=== PATIENT | male | born 1970 | race Caucasian/White ===

== ENCOUNTER 2021-05-17 10:26 | Inpatient (IN) | payer MEDICAID ==
[~2021-05-17] VITALS: Ht 165.1 cm; Wt 57.2 kg
[2021-05-17] MEDS ORDERED: ONDANSETRON HCL/PF 4 MG/2 ML VIAL IVP ONE (10:30)
[2021-05-17] MEDS ORDERED: ONDANSETRON HCL/PF 4 MG/2 ML VIAL ONE (10:38)
--- NOTE | 2021-05-17 10:40 | NUR ---
Acute nausea and vomiting this morning - reports bile vomitus. Patient a/ox1, able to nod and shake his head. Patient attached to the quality assurance monitor, noted to be tachycardic.
[2021-05-17 10:41] LABS: NEUTROPHILS % (AUTO) 86.6 % (43.0-81.0)
[2021-05-17 10:44] LABS: BASOPHILS # (AUTO) 0.1 K/uL (0.0-0.2); BASOPHILS % (AUTO) 0.3 % (0.0-2.0); EOSINOPHILS % (AUTO) 0.1 % (0.0-6.0); HEMATOCRIT 56 % (39-51); LYMPHOCYTES # (AUTO) 1.5 K/uL (0.8-4.8); MEAN CORPUSCULAR HGB CONC 35 g/dl (31.0-36.0); MEAN CORPUSCULAR VOLUME 89 fL (80-96); MONOCYTES # (AUTO) 1.8 K/uL (0.1-1.30); NEUTROPHILS # (AUTO) 22.3 K/uL (1.8-8.9); PLATELET COUNT (AUTO) 231 K/uL (150-450); RED BLOOD CELL COUNT(AUTO) 6.23 MIL/uL (4.5-6.0); WHITE BLOOD COUNT (AUTO) 25.7 K/uL (4.3-11.0)
[2021-05-17 10:47] LABS: HEMOGLOBIN 19.3 g/dL (13.5-17.5)
[2021-05-17 10:49] LABS: CALCIUM, SERUM 9.9 mg/dL (8.5-10.1); CARBON DIOXIDE 27 mmol/L (21-32); CHLORIDE 88 mmol/L (98-107); CREATININE 2.4 mg/dL (0.6-1.3); GLUCOSE 229 mg/dL (74-106); POTASSIUM 3.5 mmol/L (3.5-5.1); SODIUM SERUM 130 mmol/L (136-145); UREA NITROGEN, BLOOD 51 mg/dL (7-18)
--- NOTE | 2021-05-17 10:50 | NUR ---
Per Dr. Monk, urine not needed at this time, dont need to use straight catheter.
[2021-05-17 10:55] LABS: ALANINE AMINOTRANSFERASE 83 U/L (12-78); ALBUMIN 4.5 g/dL (3.4-5.0); ALKALINE PHOSPHATASE 258 U/L (46-116); ASPARTATE AMINOTRANSFERASE 26 U/L (15-37); BILIRUBIN,DIRECT 1.4 mg/dL (0.0-0.2); BILIRUBIN,TOTAL 2.3 mg/dL (0.2-1.0); LIPASE 376 U/L (73-393); TOTAL PROTEIN, SERUM 9.9 g/dL (6.4-8.2)
--- NOTE | 2021-05-17 10:57 | NUR ---
Patient taken to CT.
--- NOTE | 2021-05-17 11:12 | NUR ---
COVID SWAB SENT. SENIOR ACCOUNTING MANAGER AT BEDSIDE FOR BLOOD CULTURE DRAW.
[2021-05-17] MEDS ORDERED: VANCOMYCIN 1 GM in IV D5W 250 ML IV ONE (11:30)
[2021-05-17] MEDS ORDERED: IV NS 0.9% 1,000 ML BAG IV ONE (11:30)
[2021-05-17] MEDS ORDERED: MEROPENEM 1 G in IV NS 0.9% 100 ML IV ONE (11:30)
--- NOTE | 2021-05-17 12:33 | NUR ---
GT BALLOON DEFLATED AND INFLATED WITH TUBING ADJUSTED. GTUBE CONNECTED TO SUCTION FOR INTERMITTENT SUCTIONING. GREEN BILE WITH AMOUNT OF 900CC TAKEN OUT.
--- NOTE | 2021-05-17 12:41 | NUR ---
bed 104
--- NOTE | 2021-05-17 12:53 | NUR ---
report given to Sylvie BUCHANAN at [facility]. Patient's room changed to 103. Patient's HR improved.
[2021-05-17] MEDS ORDERED: CRAN3875 GT (13:24)
[2021-05-17] MEDS ORDERED: MAGN400O6 GT (13:24)
[2021-05-17] MEDS ORDERED: GUAI-717 GT (13:24)
[2021-05-17] MEDS ORDERED: BISA10SU11 RC (13:24)
[2021-05-17] MEDS ORDERED: ACET-2605 GT (13:24)
[2021-05-17] MEDS ORDERED: CRAN425C6 GT (13:24)
[2021-05-17] MEDS ORDERED: PANT40TA49 GT (13:24)
[2021-05-17] MEDS ORDERED: AMLO2.5T2 GT (13:24)
[2021-05-17] MEDS ORDERED: IPRA4AER IH (13:24)
[2021-05-17] MEDS ORDERED: DOCU-141 GT (13:24)
[2021-05-17] MEDS ORDERED: ACET325T53 GT ×2 (13:24)
[2021-05-17] MEDS ORDERED: APIX2.5T GT (13:24)
[2021-05-17] MEDS ORDERED: PHEN125O GT (13:24)
[2021-05-17] MEDS ORDERED: AMAN100T GT (13:24)
[2021-05-17] MEDS ORDERED: NA P133E RC (13:24)
[2021-05-17] MEDS ORDERED: LEVE100S GT (13:24)
[2021-05-17] MEDS ORDERED: MULT-447 GT (13:24)
[2021-05-17] MEDS ORDERED: HYDR10SY16 PO (13:24)
[2021-05-17 13:25] VITALS: BP 120/86
--- NOTE | 2021-05-17 13:25 | NUR ---
PATIENT TRANSFERRED TO ROOM 103, VIA ACLS PROTOCOL. PATIENT'S GASTRIC OUTPUT A TOTAL OF 1600CC. ENDORSED TO BROOK BUCHANAN.
[2021-05-17] MEDS ORDERED: MAG HYDROX/AL HYDROX/SIMETH 30 ML UDC GT PRN (13:30)
[2021-05-17] MEDS ORDERED: MAGNESIUM HYDROXIDE 30 ML UDC PO PRN (13:30)
[2021-05-17] MEDS ORDERED: ZOLPIDEM TARTRATE 5 MG TABLET PO PRN (13:30)
[2021-05-17] MEDS ORDERED: BISACODYL SUPP (10 MG) 10 MG/SUPP.RECT SUPP.RECT RC PRN (13:30)
[2021-05-17] MEDS ORDERED: NA PHOS,M-B/NA PHOS,DI-BA 1 EA ENEMA RC PRN ×2 (13:30→17:30)
[2021-05-17] MEDS ORDERED: MAGNESIUM HYDROXIDE 30 ML UDC GT PRN (13:30)
[2021-05-17] MEDS ORDERED: Z GUARD REMEDY 2 OZ OINT TP PRN (13:30)
[2021-05-17] MEDS ORDERED: ONDANSETRON HCL/PF 4 MG/2 ML VIAL IVP PRN (13:30)
[2021-05-17] MEDS ORDERED: Medication Not On Formulary EA (Ipratropium/Albuterol Sulfate (Combivent Respimat 20-100 IH PRN (13:30)
--- NOTE | 2021-05-17 13:30 | NUR ---
RN NOTES RECEIVED PT FROM ER. REPORT GIVEN BY PRADEEP BUCHANAN. A/O X1. NODS HEAD TO YES OR NO QUESTIONS. ON 3L O2 VIA NC, SATURATING @99%. NO SOB OR ANY S/S OF RESPIRATORY DISTRESS NOTED. SKIN IS INTACT. IV ACCESS ON L AC #18 AND L HAND #20 BOTH INTACT, PATENT AND FLUSHED. NO BELONGINGS. GTUBE CONNECTED TO LOW INTERMITTENT SUCTION, BILE COLORED. HOB ELEVATED. PLACED IN BED, LOCKED AND IN LOWEST POSITION WITH SIDE RAILS UP X3. CALL LIGHT WITHIN REACH. WILL CONTINUE TO MONITOR.
[2021-05-17] MEDS: IV NS 0.9% 1,000 ML IV SCH ×2 (13:53→23:30)
[2021-05-17] MEDS ORDERED: ACETAMINOPHEN 650 MG/20.3 ML UDC GT PRN (14:00)
[2021-05-17] MEDS ORDERED: GUAIFENESIN/D-METHORPHAN HB 5 ML UDC GT PRN (14:30)
[2021-05-17 14:57] LABS: BAND % (MANUAL) 1 % (0.0-5.0); EOSINOPHILS % (MANUAL) 1 % (0-4); LYMPHOCYTES % (MANUAL) 4 % (16-48); MONOCYTES % (MANUAL) 4 % (0-11.0); NEUTROPHILS % (MANUAL) 90 (42-76)
[2021-05-17 16:00] VITALS: BP 104/81
--- NOTE | 2021-05-17 16:30 | NUR ---
RN NOTES PAGED DR. DOT MIX GTUBE MEDS. ORDERED TO HOLD GTUBE MEDS UNTIL RESIDUAL IS <100ML. ORDERS CARRIED OUT.
[2021-05-17] MEDS: ACETAMINOPHEN 650 MG/20.3 ML UDC GT SCH (17:00)
[2021-05-17] MEDS: APIXABAN 2.5 MG TABLET GT SCH (17:00)
[2021-05-17] MEDS: LEVETIRACETAM SOL (5 ML) 100 MG/ML UDC GT SCH (17:00)
[2021-05-17] MEDS ORDERED: ALBUTEROL FS 2.5 MG/3 ML VIAL.NEB NEB PRN (17:30)
[2021-05-17] MEDS ORDERED: IPRATROPIUM NEB FS 0.5 MG/2.5 ML AMPUL.NEB NEB PRN (17:30)
[2021-05-17] MEDS: PIPERACILLIN /TAZOBACTAM 3.375 G in IV D5W 50 ML IV SCH (17:59)
--- NOTE | 2021-05-17 19:11 | NUR ---
RN CLOSING NOTES NO SIGNIFICANT CHANGES THROUGHOUT THE SHIFT. NO SOB OR ANY PAIN REPORTED. ALL DUE MEDS GIVEN. NEEDS ATTENDED. KEPT CLEAN AND DRY. RESTING COMFORTABLY IN BED. ENDORSED TO NIGHT RN FOR JOSÉ ANTONIO.
--- NOTE | 2021-05-17 19:30 | NUR ---
RN OPENING NOTES: RECEIVED PT A/OX1 IN BED RESTING COMFORTABLY. PATIENT IN NO S/SX OF ACUTE DISTRESS AT THIS TIME. NO SOB NOTED. PATIENT'S BREATHING IS EVEN AND UNLABORED. PATIENT IS ON 3L OF OXYGEN VIA NC; TOLERATING WELL. PATIENT ON TELE MONITORING READING SINUS RHYTHM HR IS @00s AT THE TIME OF RECEIVED. PATIENT ON NPO AT THIS TIME. PT HAS G TUBE SITE CLEAN DRY AND INTACT; WITH RESIDUAL NOTED OF BILE COLORED OUTPUT OF >100CC, CURRENTLY ON LOW INTERMITTENT SUCTION. NOTED IV SITE ON L AC #18 AND L HAND #20; PATENT, INTACT AND FLUSHING WELL; NO S/S OF INFECTION OR INFILTRATION. WITH IV FLUID RUNNING ORDERED. SAFETY MEASURES HAVE BEEN PROVIDED AND IMPLEMENTED. PATIENT BED ALARM IS ON. HEAD OF BED ELEVATED. BED IS LOCKED, IN LOWEST POSITION AND SIDE RAILS UP. CALL LIGHT WITHIN REACH OF THE PATIENT. APPLICABLE ISOLATION PRECAUTIONS IN PLACE. WILL CONTINUE TO MONITOR AND REASSESS FOR ANY CHANGES AND WILL CARRY OUT ANY ONGOING AND ACTIVE MD ORDER.
[2021-05-17 20:00] VITALS: BP 118/77
[2021-05-17] MEDS: hydrOXYzine HCL SYRUP 10 MG/5 ML UDC GT SCH (22:00)
--- NOTE | 2021-05-17 23:00 | NUR ---
RN NOTES NO CHANGE IN PATIENT CONDITION AT THIS TIME PATIENT VITALS STABLE, NO SIGNS OF ACUTE RESPIRATORY DISTRESS. ELECTRON MICROPROBE OPERATOR MADE AWARE. WILL CONTINUE TO MONITOR AND REASSESS FOR ANY CHANGES THROUGHOUT THE SHIFT.
[2021-05-18] VITALS: BP 97/52
[2021-05-18] MEDS: PIPERACILLIN /TAZOBACTAM 3.375 G in IV D5W 50 ML IV SCH ×5 (00:30→23:54)
[2021-05-18 04:00] VITALS: BP 115/74
--- NOTE | 2021-05-18 04:00 | NUR ---
RN NOTES PATIENT REMAINS IN NO ACUTE RESPIRATORY DISTRESS AT THIS TIME, NO CHANGES TO CONDITION/STATUS. AM PATIENT CARE DONE. BLOCKER METAL BASE WELL AWARE. WILL CONTINUE TO MONITOR AND REASSESS FOR ANY CHANGES THROUGHOUT THE SHIFT
[2021-05-18] MEDS ORDERED: VANCOMYCIN 0.75 GM in IV D5W 250 ML IV SCH (06:00)
[2021-05-18 06:35] LABS: BASOPHILS # (AUTO) 0.1 K/uL (0.0-0.2); BASOPHILS % (AUTO) 0.4 % (0.0-2.0); EOSINOPHILS % (AUTO) 1.2 % (0.0-6.0); HEMATOCRIT 45 % (39-51); HEMOGLOBIN 15.9 g/dL (13.5-17.5); LYMPHOCYTES # (AUTO) 1.4 K/uL (0.8-4.8); LYMPHOCYTES % (AUTO) 11.8 % (20.0-44.0); MEAN CORPUSCULAR HGB CONC 35 g/dl (31.0-36.0); MEAN CORPUSCULAR VOLUME 90 fL (80-96); MONOCYTES # (AUTO) 1.1 K/uL (0.1-1.30); MONOCYTES % (AUTO) 8.6 % (2.0-12.0); NEUTROPHILS # (AUTO) 9.6 K/uL (1.8-8.9); PLATELET COUNT (AUTO) 139 K/uL (150-450); RED BLOOD CELL COUNT(AUTO) 5.02 MIL/uL (4.5-6.0); WHITE BLOOD COUNT (AUTO) 12.3 K/uL (4.3-11.0)
--- NOTE | 2021-05-18 06:46 | NUR ---
RN CLOSING NOTE: PATIENT REMAINS IN ROOM IN NO SIGNS OF RESPIRATORY DISTRESS, PATIENT STILL ON 3L OF 02 VIA NC TOLERATING WELL SATURATING @ >95% SP02. SAFETY MEASURES IMPLEMENTED, BED IN LOWEST POSITION, LOCKED, SIDE RAILS UP, CALL LIGHT WITHIN REACH. ALL NEEDS AND ORDERS ADDRESSED DURING THE SHIFT. IV ACCESS MAINTAINED INTACT, SECURED AND FLUSHING WELL. ALL DUE MEDS GIVEN ORDERED & SCHEDULED ; PATIENT TOLERATED WELL. PATIENT KEPT CLEAN AND COMFORTABLE WITHIN THE SHIFT. PATIENT ENDORSED TO INCOMING SHIFT RN WITH STABLE VITAL SIGN AND FOR CONTINUITY OF CARE.
[2021-05-18 06:58] LABS: CALCIUM, SERUM 8.8 mg/dL (8.5-10.1); CREATININE 0.7 mg/dL (0.6-1.3); MAGNESIUM 2.5 mg/dL (1.8-2.4); PHOSPHORUS 1.8 mg/dL (2.5-4.9); POTASSIUM 3.3 mmol/L (3.5-5.1)
--- NOTE | 2021-05-18 07:17 | NUR ---
RN OPENING NOTE: PATIENT REMAINS IN ROOM IN NO SIGNS OF RESPIRATORY DISTRESS, PATIENT STILL ON 3L OF 02 VIA NC TOLERATING WELL SATURATING @ >95% SP02. SAFETY MEASURES IMPLEMENTED, BED IN LOWEST POSITION, LOCKED, SIDE RAILS UP IV ACCESS MAINTAINED INTACT, SECURED AND FLUSHING WELL. CALL LIGHT WITHIN EASY REACH AND ANSWERED PROMPTLY
[2021-05-18 08:00] VITALS: BP 117/76
[2021-05-18] MEDS: APIXABAN 2.5 MG TABLET GT SCH ×2 (09:00→16:23)
[2021-05-18] MEDS: AMLODIPINE BESYLATE 2.5 MG TABLET GT SCH (09:00)
[2021-05-18] MEDS: PHENYTOIN SUSP UDC 100 MG/4 ML UDC GT SCH (09:00)
[2021-05-18] MEDS: PANTOPRAZOLE 40 MG/PACK PACK GT SCH (09:00)
[2021-05-18] MEDS: DOCUSATE SODIUM LIQ 100 MG/10 ML UDC GT SCH (09:00)
[2021-05-18] MEDS: MULTIVITAMINS,THERAGRAN 1 UDTAB TABLET PO SCH (09:00)
[2021-05-18] MEDS: LEVETIRACETAM SOL (5 ML) 100 MG/ML UDC GT SCH ×2 (09:00→16:19)
[2021-05-18] MEDS ORDERED: Medication Not On Formulary EA (Cran/Vitc/Mannose/Inulin/Brom (Uti-Stat Liquid) 30 MG) GT SCH (09:00)
[2021-05-18] MEDS: AMANTADINE HCL 100 MG CAPSULE GT SCH (09:00)
[2021-05-18] MEDS: ACETAMINOPHEN 650 MG/20.3 ML UDC GT SCH ×2 (09:00→16:19)
[2021-05-18] MEDS ORDERED: Medication Not On Formulary EA (Cranberry Extract (Cranberry) 425 MG) GT SCH (09:00)
[2021-05-18 09:51] LABS: LYMPHOCYTES % (MANUAL) 13 % (16-48); MONOCYTES % (MANUAL) 9 % (0-11.0); NEUTROPHILS % (MANUAL) 78 (42-76)
[2021-05-18] MEDS: IV NS 0.9% 1,000 ML IV SCH ×2 (10:07→19:30)
[2021-05-18] MEDS: POTASSIUM CL. PREMIX PERIPHER. 50 ML IV SCH ×2 (10:08→10:20)
[2021-05-18] MEDS ORDERED: Sodium Phosphate 15 MMOL in IV NS 0.9% 245 ML IV SCH (11:30)
[2021-05-18 12:00] VITALS: BP 102/76
[2021-05-18 16:00] VITALS: BP 102/76
[2021-05-18] MEDS: VANCOMYCIN 1 GM in IV D5W 250ml IV SCH (17:09)
--- NOTE | 2021-05-18 19:15 | NUR ---
RN OPENING NOTE RECEIVED PATIENT IN BED, RESTING. REMAINS IN NO SIGNS OF RESPIRATORY DISTRESS, PATIENT STILL ON 3L OF 02 VIA NC TOLERATING WELL SATURATING @ >95% SP02. PATIENT DENIES ANY PAIN. IVF RUNNING THROUGH LEFT AC 18G, TOLERATING WELL. LEFT HAND 20G FLUSHED, PATENT, AND INTACT. G TUBE CONNECTED TO INT. SUCTION. SAFETY MEASURES IMPLEMENTED, BED IN LOWEST POSITION, LOCKED, SIDE RAILS UP X3. BED ALARM ON. CALL LIGHT WITHIN REACH AND NO ACUTE DISTRESS NOTED AT THIS TIME.
[2021-05-18 20:00] VITALS: BP 113/70
[2021-05-18] MEDS: hydrOXYzine HCL SYRUP 10 MG/5 ML UDC GT SCH (22:00)
--- NOTE | 2021-05-18 23:00 | NUR ---
RN NOTES NO CHANGE IN PATIENT CONDITION AT THIS TIME PATIENT VITALS STABLE, NO SIGNS OF ACUTE RESPIRATORY DISTRESS. PATHOLOGY TRANSCRIPTIONIST MADE AWARE. WILL CONTINUE TO MONITOR AND REASSESS FOR ANY CHANGES THROUGHOUT THE SHIFT.
[2021-05-19] VITALS: BP 126/81
--- NOTE | 2021-05-19 02:47 | NUR ---
RN NOTE PT. NOTED TO BE RESTLESS AND AGITATED IN BED. HR ABOVE 130, BP RR O2 AND TEMP WNL. CHURNER MD MADE AWARE OF PTS' CHANGE IN CONDITION. ATIVAN 1MG PRN Q6H IV ORDERED. CHARGE NURSE MADE AWARE.
[2021-05-19] MEDS: LORAZEPAM INJ 2 MG/ML VIAL IV PRN (02:58)
[2021-05-19 04:00] VITALS: BP 125/78
--- NOTE | 2021-05-19 04:00 | NUR ---
RN NOTES PATIENT REMAINS IN NO ACUTE RESPIRATORY DISTRESS AT THIS TIME, NO CHANGES TO CONDITION/STATUS. AM PATIENT CARE DONE. FORMING PRESS OPERATOR WELL AWARE. WILL CONTINUE TO MONITOR AND REASSESS FOR ANY CHANGES THROUGHOUT THE SHIFT
[2021-05-19] MEDS: PIPERACILLIN /TAZOBACTAM 3.375 G in IV D5W 50 ML IV SCH ×4 (05:19→23:29)
[2021-05-19] MEDS: VANCOMYCIN 1 GM in IV D5W 250ml IV SCH ×2 (05:19→19:11)
[2021-05-19] MEDS: IV NS 0.9% 1,000 ML IV SCH (05:30)
--- NOTE | 2021-05-19 06:22 | NUR ---
RN CLOSING NOTE: PATIENT REMAINS IN ROOM SLEEPING IN NO SIGNS OF RESPIRATORY DISTRESS, PATIENT STILL ON 3L OF 02 VIA NC TOLERATING WELL SATURATING @ >95% SP02. ALL NEEDS AND ORDERS ADDRESSED DURING THE SHIFT. PATIENT DISPLAYED S/S OF RESTLESSNESS AND AGITATION THROUGHOUT NIGHT WITH HR ABOVE 130 BPM. ON-CALL MD MADE AWARE AND ORDER FOR ATIVAN 1MG IVP Q6H ORDERED AND GIVEN. MEDICATION WAS EFFECTIVE WITH DECREASED HR IN THE 80'S ALONG WITH PATIENT BEING ABLE TO REST THROUGH THE REST OF THE NIGHT COMFORTABLY. IV ACCESS MAINTAINED INTACT, SECURED AND FLUSHING WELL. ALL DUE MEDS GIVEN ORDERED & SCHEDULED ; PATIENT TOLERATED WELL. PATIENT KEPT CLEAN, DRY AND COMFORTABLE WITHIN THE SHIFT. SAFETY MEASURES IMPLEMENTED, BED IN LOWEST POSITION, LOCKED, SIDE RAILS UP X3, CALL LIGHT WITHIN REACH. PATIENT CURRENT VITAL SIGNS ALL WNL. WILL ENDORSE CONTINUITY OF CARE TO MORNING RN.
[2021-05-19 07:14] LABS: BASOPHILS % (AUTO) 0.3 % (0.0-2.0); EOSINOPHILS % (AUTO) 1.3 % (0.0-6.0); HEMATOCRIT 42 % (39-51); HEMOGLOBIN 14.5 g/dL (13.5-17.5); LYMPHOCYTES # (AUTO) 1.2 K/uL (0.8-4.8); MEAN CORPUSCULAR HGB CONC 35 g/dl (31.0-36.0); MEAN CORPUSCULAR VOLUME 90 fL (80-96); MONOCYTES # (AUTO) 0.8 K/uL (0.1-1.30); MONOCYTES % (AUTO) 9.1 % (2.0-12.0); NEUTROPHILS # (AUTO) 6.4 K/uL (1.8-8.9); NEUTROPHILS % (AUTO) 75.3 % (43.0-81.0); PLATELET COUNT (AUTO) 145 K/uL (150-450); RED BLOOD CELL COUNT(AUTO) 4.67 MIL/uL (4.5-6.0); WHITE BLOOD COUNT (AUTO) 8.4 K/uL (4.3-11.0)
[2021-05-19 07:27] LABS: CREATININE 0.6 mg/dL (0.6-1.3); MAGNESIUM 2.1 mg/dL (1.8-2.4); PHOSPHORUS 2.2 mg/dL (2.5-4.9)
[2021-05-19 07:29] LABS: POTASSIUM 2.8 mmol/L (3.5-5.1)
[2021-05-19 08:00] VITALS: BP 117/79
[2021-05-19] MEDS: DOCUSATE SODIUM LIQ 100 MG/10 ML UDC GT SCH (08:06)
[2021-05-19] MEDS: AMLODIPINE BESYLATE 2.5 MG TABLET GT SCH (08:08)
[2021-05-19] MEDS: ACETAMINOPHEN 650 MG/20.3 ML UDC GT SCH ×2 (08:10→17:00)
[2021-05-19] MEDS: MULTIVITAMINS,THERAGRAN 1 UDTAB TABLET PO SCH (08:10)
--- NOTE | 2021-05-19 08:10 | NUR ---
OPENING NOTE: REPORT RECEIVED FROM ELICEO BUCHANAN. PT IS ALERT, NON VERBAL, APPEARS TO UNDERSTAND HIS NAME, TAJIK SPEAKING ONLY. GT TO LIS, ESSENTIAL MEDS TO BE GIVEN ONLY WITH GT CLAMPED FOR 1 HOUR. IF OUTPUT >200 HOLD MEDS. PT CHECKED ON HOURLY AND PRN BY NURSING STAFF.
[2021-05-19] MEDS: POTASSIUM CL. PREMIX PERIPHER. 50 ML IV SCH ×8 (09:40→17:58)
[2021-05-19] MEDS: PANTOPRAZOLE 40 MG/PACK PACK GT SCH (09:51)
[2021-05-19] MEDS: AMANTADINE HCL 100 MG CAPSULE GT SCH (09:51)
[2021-05-19] MEDS: LEVETIRACETAM SOL (5 ML) 100 MG/ML UDC GT SCH ×2 (09:51→17:46)
[2021-05-19] MEDS: PHENYTOIN SUSP UDC 100 MG/4 ML UDC GT SCH (09:52)
[2021-05-19] MEDS: APIXABAN 2.5 MG TABLET GT SCH ×2 (09:52→17:45)
[2021-05-19] MEDS: POTASSIUM PHOSPHATE MM 7.5 MMOL in IV NS 0.9% 100 ML IV SCH ×2 (11:56→14:56)
[2021-05-19 12:00] VITALS: BP 142/89
[2021-05-19] MEDS: METOCLOPRAMIDE HCL 10 MG/10 ML UDC GT SCH ×3 (13:00→23:29)
[2021-05-19 16:00] VITALS: BP 113/79
--- NOTE | 2021-05-19 18:26 | NUR ---
END OF SHIFT NOTE: PT HAD A FAIRLY UNEVENTFUL SHIFT. REGLAN STARTED PER MD ORDERS. GASTRIC OUTPUT 25ML THIS SHIFT. PER DR. CHRIS TUBE FEEDING CAN BE STARTED IF RESIDUALS REMAIN <100. IVF STOPPED TODAY. 80MEQ IV KCL GIVEN PER MD ORDERS FOR K OF 2.8 TODAY. K PHOS GIVEN PER MD ORDERS FOR PHOS OF 2.2. PT CHECKED ON HOURLY AND PRN BY NURSING STAFF.
--- NOTE | 2021-05-19 19:30 | NUR ---
RN OPENING NOTE PT RECEIVED IN BED, SLOVAK SPEAKING. A&OX1. PT ON N/C 3L @98% O2 SAT. PT SR AT 73. IV LINE INSERTED ON RIGHT HAND 22G. IV ACCESS MAINTAINED INTACT, SECURED AND FLUSHING WELL. ALL DUE MEDS GIVEN ORDERED & SCHEDULED, PATIENT TOLERATED WELL. SAFETY MEASURES IMPLEMENTED, BED IN LOWEST POSITION, LOCKED, SIDE RAILS UP X3, CALL LIGHT WITHIN REACH. WILL CONTINUE TO MONITOR.
[2021-05-19 20:00] VITALS: BP 114/84
--- NOTE | 2021-05-19 20:10 | NUR ---
RN NOTES RECEIVED CALL FROM FAMILY; DURAN (DAUGHTER) PROVIDED GENERAL UPDATES REGARDING THE PATIENT. SHE WAS REQUESTING FOR MD CALLBACK FOR MORE CONCRETE TREATMENT UPDATES. FAMILY WAS ADVISE TO CALL IN THE MORNING BUT ASSURED THAT THIS REQUEST WILL BE ENDORSED IN THE MORNING. FAMILY VERY THANKFUL FOR ALL THE HELP TO THE PT. SILICATOR MADE AWARE.
--- NOTE | 2021-05-19 21:00 | NUR ---
RN NOTES FACILITATED INSERTION OF ADDITIONAL IV LINE/ACCESS @ R HAND G#22; SALINE LOCK, SECURED, INTACT AND FLUSHING WELL. FILTER OPERATOR MADE AWARE.
[2021-05-19] MEDS: hydrOXYzine HCL SYRUP 10 MG/5 ML UDC GT SCH (21:03)
[2021-05-19] MEDS: MUPIROCIN OINT 2% 22 GM TUBE NS SCH (21:06)
--- NOTE | 2021-05-19 21:30 | NUR ---
RN NOTES TOUCHBASED WITH PAT BROOKS, INFORMED THAT AM SHIFT RESUMED GIVING MEDS VIA GTUBE RESIDUAL FROM THE GTUBE CONNECTED TO LIS IS LESS THAN 100CC. PAT BROOKS ACKNOWLEDGED. ALSO INFORMED THAT PER ENDORSEMENT REPORT MONITOR WITHIN 12HOURS FOR RESIDUAL IF CONTINUES TO BE LESS THAN 100, MAY START TUBE FEEDING IN THE AM. BUDGET COORDINATOR MADE AWARE.
[2021-05-19] MEDS ORDERED: IV 1/2NS 1000 ML 1,000 ML IV ONE (23:30)
[2021-05-20] VITALS: BP 118/79
[2021-05-20 04:00] VITALS: BP 114/74
--- NOTE | 2021-05-20 04:00 | NUR ---
RN NOTES PATIENT REMAINS IN NO ACUTE RESPIRATORY DISTRESS AT THIS TIME, NO CHANGES TO CONDITION/STATUS. AM PATIENT CARE DONE. LINING FELLER WELL AWARE. WILL CONTINUE TO MONITOR AND REASSESS FOR ANY CHANGES THROUGHOUT THE SHIFT
--- NOTE | 2021-05-20 04:30 | NUR ---
RN NOTES ENDORSEMENT REPORT GIVEN TO DEWAYNE RUBALCAVA FOR JOSÉ ANTONIO. INDUSTRIAL RELATIONS COUNSELOR MADE AWARE.
--- NOTE | 2021-05-20 04:31 | NUR ---
[facility]/RN ASSUMED CARE CARE FOR CONTINUITY OF CARE, PATIENT IS IN BED SLEEPING, APPEAR COMFORTABLE, NO DISTRESS NOTED, CALL LIGHT IN REACH, WILL MONITOR.
[2021-05-20] MEDS: PIPERACILLIN /TAZOBACTAM 3.375 G in IV D5W 50 ML IV SCH ×3 (06:01→18:09)
[2021-05-20] MEDS: METOCLOPRAMIDE HCL 10 MG/10 ML UDC GT SCH ×3 (06:01→17:32)
[2021-05-20] MEDS: VANCOMYCIN 1 GM in IV D5W 250ml IV SCH ×2 (06:40→18:04)
--- NOTE | 2021-05-20 06:48 | NUR ---
[facility]/RN PATIENT IS AWAKE AT THIS TIME, APPEAR COMFORTABLE, NO DISTRESS NOTED, CALL LIGHT IN REACH, ALL NEEDS ATTENDED AT THIS TIME, WILL CONTINUE TO MONITOR.
[2021-05-20 06:57] LABS: BASOPHILS % (AUTO) 0.4 % (0.0-2.0); EOSINOPHILS % (AUTO) 4.7 % (0.0-6.0); HEMATOCRIT 40 % (39-51); HEMOGLOBIN 13.7 g/dL (13.5-17.5); LYMPHOCYTES # (AUTO) 1.7 K/uL (0.8-4.8); LYMPHOCYTES % (AUTO) 30.8 % (20.0-44.0); MEAN CORPUSCULAR HGB CONC 34 g/dl (31.0-36.0); MEAN CORPUSCULAR VOLUME 91 fL (80-96); MONOCYTES # (AUTO) 0.5 K/uL (0.1-1.30); MONOCYTES % (AUTO) 9.2 % (2.0-12.0); NEUTROPHILS % (AUTO) 54.9 % (43.0-81.0); PLATELET COUNT (AUTO) 134 K/uL (150-450); RED BLOOD CELL COUNT(AUTO) 4.44 MIL/uL (4.5-6.0); WHITE BLOOD COUNT (AUTO) 5.4 K/uL (4.3-11.0)
[2021-05-20 07:25] LABS: CALCIUM, SERUM 8.5 mg/dL (8.5-10.1); CREATININE 0.5 mg/dL (0.6-1.3); PHOSPHORUS 2.9 mg/dL (2.5-4.9); POTASSIUM 3.5 mmol/L (3.5-5.1)
[2021-05-20 08:00] VITALS: BP 127/76
--- NOTE | 2021-05-20 08:00 | NUR ---
NURSE REPORT Report obtained from franko nurse Izzy, and this nurse assumed care of patient. NPO. Peg tube intact. 1/2 NS at 50 ml/hr. Patient is nonverbal. VSS. Afeb.
[2021-05-20] MEDS: LEVETIRACETAM SOL (5 ML) 100 MG/ML UDC GT SCH ×2 (09:10→17:32)
[2021-05-20] MEDS: DOCUSATE SODIUM LIQ 100 MG/10 ML UDC GT SCH (09:10)
[2021-05-20] MEDS: AMANTADINE HCL 100 MG CAPSULE GT SCH (09:11)
[2021-05-20] MEDS: APIXABAN 2.5 MG TABLET GT SCH ×2 (09:12→17:37)
[2021-05-20] MEDS: PANTOPRAZOLE 40 MG/PACK PACK GT SCH (09:14)
[2021-05-20] MEDS: MULTIVITAMINS,THERAGRAN 1 UDTAB TABLET PO SCH (09:14)
[2021-05-20] MEDS: PHENYTOIN SUSP UDC 100 MG/4 ML UDC GT SCH (09:14)
[2021-05-20] MEDS: AMLODIPINE BESYLATE 2.5 MG TABLET GT SCH (09:15)
[2021-05-20] MEDS: ACETAMINOPHEN 650 MG/20.3 ML UDC GT SCH ×2 (09:18→17:32)
[2021-05-20] MEDS: MUPIROCIN OINT 2% 22 GM TUBE NS SCH ×2 (09:39→22:18)
[2021-05-20 12:00] VITALS: BP 110/77
[2021-05-20 16:00] VITALS: BP 95/54
--- NOTE | 2021-05-20 18:00 | NUR ---
NURSE CARE On IVPB Zosyn, Flagyl and Vanco. VSS. Afeb. No c/o pain or discomfort. O2 sat 99-100%
--- NOTE | 2021-05-20 19:15 | NUR ---
MELT SUPERVISOR: END OF SHIFT REPORT Patient non verbal. Sinus Rhythm/SB. Ongoing IVF 1/2 NS at 50 ml/hr. NPO. On numerous atb.
[2021-05-20 20:00] VITALS: BP 100/65
[2021-05-20] MEDS: hydrOXYzine HCL SYRUP 10 MG/5 ML UDC GT SCH (22:18)
[2021-05-20] MEDS: LORAZEPAM INJ 2 MG/ML VIAL IV PRN (22:20)
[2021-05-21] VITALS: BP 115/69
[2021-05-21] MEDS: PIPERACILLIN /TAZOBACTAM 3.375 G in IV D5W 50 ML IV SCH ×4 (00:56→16:59)
[2021-05-21] MEDS: METOCLOPRAMIDE HCL 10 MG/10 ML UDC GT SCH ×4 (01:01→16:59)
[2021-05-21 04:00] VITALS: BP 133/72
[2021-05-21] MEDS: VANCOMYCIN 1 GM in IV D5W 250ml IV SCH ×2 (04:38→16:59)
--- NOTE | 2021-05-21 07:30 | NUR ---
RN OPENING NOTE NONVERBAL PT A/Ox1 ON NC 3L, SPO2 99%, NO S/S OF RESP DISTRESS OR SOB, S/P DECANNULATION LAST WEEK. PT G-TUBE CURRENTLY TO INTERMITTENT SUCTION, AUSCULTATED FOR POSITIVE PLACEMENT, FLUSHED AND INTACT. PT LAC #18 INFUSING 1/2 NS @ 50ML/HR; PT RT HAND #22 SL, BOTH IV SITES FLUSHED, ARE PATENT AND NO SIGNS OF INFILTRATION OR INFECTION. PT SKIN IS INTACT. ALL PT SAFETY PRECAUTIONS IN PLACE, WILL CONT TO MONITOR
[2021-05-21 08:00] VITALS: BP 123/89
[2021-05-21 08:56] LABS: BASOPHILS % (AUTO) 0.6 % (0.0-2.0); EOSINOPHILS % (AUTO) 6.7 % (0.0-6.0); HEMATOCRIT 41 % (39-51); HEMOGLOBIN 14.4 g/dL (13.5-17.5); LYMPHOCYTES # (AUTO) 1.2 K/uL (0.8-4.8); LYMPHOCYTES % (AUTO) 21.8 % (20.0-44.0); MEAN CORPUSCULAR HGB CONC 35 g/dl (31.0-36.0); MEAN CORPUSCULAR VOLUME 89 fL (80-96); MONOCYTES # (AUTO) 0.4 K/uL (0.1-1.30); MONOCYTES % (AUTO) 7.5 % (2.0-12.0); NEUTROPHILS # (AUTO) 3.6 K/uL (1.8-8.9); NEUTROPHILS % (AUTO) 63.4 % (43.0-81.0); PLATELET COUNT (AUTO) 152 K/uL (150-450); RED BLOOD CELL COUNT(AUTO) 4.64 MIL/uL (4.5-6.0); WHITE BLOOD COUNT (AUTO) 5.7 K/uL (4.3-11.0)
--- NOTE | 2021-05-21 09:00 | NUR ---
RN NOTE: PT INTERMITTENT SUCTION ORDERS PER DR CHRIS: RESUME GTF IF GT RESIDUALS LESS THAN 100 ML RESUME GT MEDS IF RESIDUALS LESS THAN 200 ML RESIDUALS OF 125 ML NOTED. AUSCULTATED FOR POSITIVE PLACEMENT AND FLUSHED, IS PATENT
[2021-05-21 09:10] LABS: CALCIUM, SERUM 8.7 mg/dL (8.5-10.1); CREATININE 0.5 mg/dL (0.6-1.3); POTASSIUM 3.5 mmol/L (3.5-5.1)
[2021-05-21] MEDS: PHENYTOIN SUSP UDC 100 MG/4 ML UDC GT SCH (11:51)
[2021-05-21] MEDS: LEVETIRACETAM SOL (5 ML) 100 MG/ML UDC GT SCH ×2 (11:52→16:59)
[2021-05-21] MEDS: MULTIVITAMINS,THERAGRAN 1 UDTAB TABLET PO SCH (11:53)
[2021-05-21] MEDS: DOCUSATE SODIUM LIQ 100 MG/10 ML UDC GT SCH (11:53)
[2021-05-21] MEDS: PANTOPRAZOLE 40 MG/PACK PACK GT SCH (11:53)
[2021-05-21] MEDS: ACETAMINOPHEN 650 MG/20.3 ML UDC GT SCH ×2 (11:55→16:59)
[2021-05-21] MEDS: APIXABAN 2.5 MG TABLET GT SCH ×2 (11:55→17:05)
[2021-05-21] MEDS: AMANTADINE HCL 100 MG CAPSULE GT SCH (11:55)
[2021-05-21] MEDS: MUPIROCIN OINT 2% 22 GM TUBE NS SCH ×2 (11:56→21:54)
[2021-05-21] MEDS: AMLODIPINE BESYLATE 2.5 MG TABLET GT SCH (11:58)
[2021-05-21 12:00] VITALS: BP 120/78
[2021-05-21] MEDS: IV NS 0.9% 1,000 ML IV PRN (12:58)
[2021-05-21 16:00] VITALS: BP 113/73
--- NOTE | 2021-05-21 19:00 | NUR ---
RN CLOSING NOTES NO CHANGES TO PT DURING SHIFT, PT STABLE. ALL GT MEDS GIVEN. REFER TO DR CHRIS'S ORDER FOR INTERMITTENT SUCTION/GT FEED INSTRUCTIONS. ALL PT SAFETY PRECAUTIONS IN PLACE. JOSÉ ANTONIO ENDORSED TO RN
--- NOTE | 2021-05-21 19:35 | NUR ---
RN OPENING NOTES RECD PT FROM [facility] BU[facility]. PT IS ON 3L OF O2 VIA NASAL CANNULA. NO SOB NO DISTRESS NOTED. PT IS NONVERBAL. FOLLOWS SIMPLE COMMANDS. OPENS EYES. ANSWERS SIMPLE YES/ NO QUESTIONS. PT IS ON TELE MONITOR. PRESENTS WITH NSR HR 59, BASELINE TO PT. PT HAS IV SITES LEFT AC AND RIGHT HAND, BOTH FLUSHED ASEPTICALLY. PT HAS IVF NS 0.9% RUNNING ORDERED. NO S/S OF INFILTRATION NOTED AT THIS TIME. PT HAS GTUBE. CONNECTED TO INTERMITTENT SUCTION. GTUBE PATENT, AUSCULTATED FOR PLACEMENT. PT HAS 0 RESIDUAL SAFETY MEASURES IN PLACE. HOB ELEVATED. SIDE RAILS UP X2, BED LOCKED IN LOWEST POSITION WITH BED ALARM ON. CALL LIGHT WITHIN REACH. WILL CONT TO MONITOR THROUGHOUT SHIFT.
[2021-05-21 20:00] VITALS: BP 100/61
[2021-05-21] MEDS: hydrOXYzine HCL SYRUP 10 MG/5 ML UDC GT SCH (22:25)
--- NOTE | 2021-05-21 22:30 | NUR ---
RN NOTE NOTIFIED PRACTICAL NURSE CLINICAL COORDINATOR OPAL SANON NP REGARDING PT GT RESIDUAL, OKAY TO GIVE GT MEDS, AND RESUME FEEDING IN THE MORNING.
[2021-05-22] VITALS: BP 125/76
[2021-05-22] MEDS: METOCLOPRAMIDE HCL 10 MG/10 ML UDC GT SCH ×5 (00:08→23:43)
[2021-05-22] MEDS: PIPERACILLIN /TAZOBACTAM 3.375 G in IV D5W 50 ML IV SCH ×5 (00:08→23:43)
--- NOTE | 2021-05-22 01:30 | NUR ---
PATIENT TRANSFERRED FROM [facility] TO [facility] BED 1. BEDSIDE REPORT RECIEVED FROM ASHLYN BUCHANAN.
[2021-05-22 01:36] VITALS: BP 112/70
[2021-05-22] MEDS: IV NS 0.9% 1,000 ML IV PRN (01:48)
--- NOTE | 2021-05-22 01:51 | NUR ---
RN NOTE TRANSFERRED PT TO [facility] ROOM 322-1 VIA ACLS PROTOCOL. PT STABLE DURING TRANSPORT. REPORT GIVEN TO DEWAYNE SIEGEL FOR CONTINUATION OF CARE.
--- NOTE | 2021-05-22 02:00 | NUR ---
GTUBE PLACEMENT CONFIRMED WITH ASPIRATION AND AUSCULTATION. GTUBE SITE HAS NO S/S OF ABNORMAL REDNESS OR DRAINAGE. PATIENT CURRENTLY HAS NO RESIDUAL. POSITIVE AIR SOUNDS PER PLACEMENT. FLUSHED WITH 50 CC OF WATER. WILL CONT TO MONITOR PER PROTOCOL. PLAN IS TO POSSIBLY START GTF THIS AM. Addendum: 05/22/21 at 0414 by CHRISTAL FLETCHER RN TUBE IS CURRENTLY CLAMPED
[2021-05-22 04:01] VITALS: BP 125/76
[2021-05-22] MEDS: VANCOMYCIN 1 GM in IV D5W 250ml IV SCH ×2 (06:52→17:42)
--- NOTE | 2021-05-22 07:29 | NUR ---
HOT TOP LINER OPENING NOTES RECEIVED PT AWAKE IN BED IN NO ACUTE SIGNS OF DISTRESS. HOB ELEVATED. A/O X1. NON-VERBAL BUT RESPONDS BY NODDING/MOVING HIS HEAD. ON 02 VIA N/C AT 2LPM, TOLERATING WELL WITH NO SOB NOTED. ON EXTERNAL REFINERY OPERATOR REFORMING UNIT WITH CURRENT READING OF NSR, HR ON THE 60'S, NO S/S OF CARDIAC DISTRESS OBSERVED AT THIS TIME. PIV'S ON RIGHT AC #22 AND LAC #18 BOTH INTACT AND PATENT, IVF OF NS @ 5O ML/HR INFUSING TO RIGHT HAND, NO S/S OF INFILTRATION NOTED. DRESSING ON TRACH SITE C/D/I. G-TUBE IN PLACE AND PATENT, NO RESIDUALS NOTED. ASPIRATION PRECAUTION MAINTAINED. SAFETY MEASURES IN PLACE: BED IN LOWEST LOCKED POSITION, SIDE RAILS UP X2 AND CALL LIGHT W/I REACH. WILL CONTINUE TO MONITOR PT ACCORDINGLY.
[2021-05-22 08:00] VITALS: BP 122/76
[2021-05-22 08:33] LABS: CREATININE 0.5 mg/dL (0.6-1.3); POTASSIUM 3.5 mmol/L (3.5-5.1)
[2021-05-22] MEDS: AMANTADINE HCL 100 MG CAPSULE GT SCH (08:40)
[2021-05-22] MEDS: MULTIVITAMINS,THERAGRAN 1 UDTAB TABLET PO SCH (08:40)
[2021-05-22] MEDS: PANTOPRAZOLE 40 MG/PACK PACK GT SCH (08:40)
[2021-05-22] MEDS: DOCUSATE SODIUM LIQ 100 MG/10 ML UDC GT SCH (08:43)
[2021-05-22] MEDS: AMLODIPINE BESYLATE 2.5 MG TABLET GT SCH (08:43)
[2021-05-22] MEDS: ACETAMINOPHEN 650 MG/20.3 ML UDC GT SCH ×2 (08:43→17:07)
[2021-05-22] MEDS: APIXABAN 2.5 MG TABLET GT SCH ×2 (08:49→17:08)
[2021-05-22] MEDS: LEVETIRACETAM SOL (5 ML) 100 MG/ML UDC GT SCH ×2 (08:49→17:06)
[2021-05-22] MEDS: MUPIROCIN OINT 2% 22 GM TUBE NS SCH ×2 (08:51→22:16)
[2021-05-22] MEDS ORDERED: JEVITY 1.2 CAL 1,000 ML BOTTLE GT PRN (10:00)
[2021-05-22] MEDS: PHENYTOIN SUSP UDC 100 MG/4 ML UDC GT SCH (10:31)
--- NOTE | 2021-05-22 12:35 | NUR ---
RN NOTES MD ORDER OF GTUBE FEEDING OF JEVITY 1.2 STARTED. GTUBE INTACT AND PATENT, NO RESIDUALS. PT TOLERATING WELL.
[2021-05-22 16:43] VITALS: BP 102/70
--- NOTE | 2021-05-22 18:50 | NUR ---
PRINCIPAL SYSTEMS ENGINEER CLOSING NOTES PT LYING IN BED, IN MODERATE HIGH BACK REST POSITION, IN NO ACUTE DISTRESS. A/O X1-2. NON-VERBAL, RESPONDS BY NODDING/MOVING HIS HEAD. ON 02 VIA N/C AT 2LPM, TOLERATING WELL WITH NO SOB NOTED. ON EXTERNAL EDGE DRUMMER WITH CURRENT READING OF NS DREW, HR 59, NO S/S OF CARDIAC DISTRESS OBSERVED AT THIS TIME. PIV'S SL ON RIGHT AC #22 AND LAC #18 BOTH INTACT, PATENT AND FLUSHES WELL. DRESSING ON TRACH SITE C/D/I. G-TUBE IN PLACE AND PATENT, RESIDUALS 5ML AT THIS TIME. FEEDING OF JEVITY 1.2 RUNNING AT 65 ML/HR AND TOLERATING WELL. ASPIRATION PRECAUTION MAINTAINED. SAFETY MEASURES IN PLACE: BED IN LOWEST LOCKED POSITION, SIDE RAILS UP X2 AND CALL LIGHT W/I REACH. WILL ENDORSE JOSÉ ANTONIO TO SPORTING GOODS SALES MANAGER NURSE.
--- NOTE | 2021-05-22 19:45 | NUR ---
TELERN FULLY AWAKE, RESTING QUIETLY. NO VERBAL RESPONSE , HAS EYE CONTACT. PRESENT GT FEEDINGS TOLERATED WELL. MAINTAINED HOB AT 45 DEGREES. CONTINUED MONITORING.
[2021-05-22 20:00] VITALS: BP 103/60
--- NOTE | 2021-05-22 22:10 | NUR ---
TELERN DUE MEDS ADMINISTERED VIA GT. NO RESIDUALS. HS CARE STARTED.
[2021-05-22] MEDS: hydrOXYzine HCL SYRUP 10 MG/5 ML UDC GT SCH (22:16)
[2021-05-23] VITALS: BP 108/79
--- NOTE | 2021-05-23 00:18 | NUR ---
TELERN ZOSYN INFUSING WELL. SLEEPS ON/OFF. REPOSITIONED KEPT COMFORTABLE.
--- NOTE | 2021-05-23 02:32 | NUR ---
MTELERN PULLED OUT HL RIGHT HAND. RESTARTED 20 GAUGE ON LEFT WRIST WITH GOOD BLOOD RETURN. IVF CONTINUED.
[2021-05-23 04:00] VITALS: BP 148/94
[2021-05-23] MEDS: PIPERACILLIN /TAZOBACTAM 3.375 G in IV D5W 50 ML IV SCH ×2 (06:18→12:08)
[2021-05-23] MEDS: METOCLOPRAMIDE HCL 10 MG/10 ML UDC GT SCH ×2 (06:18→12:18)
--- NOTE | 2021-05-23 06:35 | NUR ---
TELERN AM LABS DRAWN SHANK SORTER ASSISTED. REPOSITIONED FOR COMFORT.
[2021-05-23 06:52] LABS: BASOPHILS % (AUTO) 0.3 % (0.0-2.0); EOSINOPHILS % (AUTO) 1.8 % (0.0-6.0); HEMATOCRIT 43 % (39-51); LYMPHOCYTES % (AUTO) 10.9 % (20.0-44.0); MEAN CORPUSCULAR HGB CONC 35 g/dl (31.0-36.0); MEAN CORPUSCULAR VOLUME 88 fL (80-96); MONOCYTES # (AUTO) 0.7 K/uL (0.1-1.30); MONOCYTES % (AUTO) 7.9 % (2.0-12.0); NEUTROPHILS % (AUTO) 79.1 % (43.0-81.0); PLATELET COUNT (AUTO) 174 K/uL (150-450); RED BLOOD CELL COUNT(AUTO) 4.87 MIL/uL (4.5-6.0); WHITE BLOOD COUNT (AUTO) 8.8 K/uL (4.3-11.0)
[2021-05-23] MEDS: VANCOMYCIN 1 GM in IV D5W 250ml IV SCH (06:57)
[2021-05-23 07:14] LABS: CALCIUM, SERUM 9.1 mg/dL (8.5-10.1); CREATININE 0.9 mg/dL (0.6-1.3); POTASSIUM 3.4 mmol/L (3.5-5.1)
--- NOTE | 2021-05-23 07:55 | NUR ---
TELE/RN OPENING NOTES RECEIVED PT LAYING IN BED, IN MODERATE HIGH BACK REST POSITION, IN NO ACUTE DISTRESS. A/O X1-2. NON-VERBAL, RESPONDS BY NODDING/MOVING HIS HEAD. ON 02 VIA N/C AT 2LPM, TOLERATING WELL WITH NO SOB NOTED. IV ACCESS ON LEFT WRIST #20G IS PATENT AND INTACT. DRESSING ON TRACH SITE C/D/I. G-TUBE IN PLACE AND PATENT, RESIDUALS 5ML AT THIS TIME. FEEDING OF JEVITY 1.2 RUNNING AT 65 ML/HR AND TOLERATING WELL. ASPIRATION PRECAUTION MAINTAINED. SAFETY MEASURES IN PLACE: BED IN LOWEST LOCKED POSITION, SIDE RAILS UP X2 AND CALL LIGHT W/I REACH. WILL CONTINUE TO MONITOR PATIENT.
[2021-05-23 08:00] VITALS: BP 128/83
[2021-05-23] MEDS ORDERED: LEVO500T90 PO (09:42)
[2021-05-23] MEDS: PHENYTOIN SUSP UDC 100 MG/4 ML UDC GT SCH (10:13)
[2021-05-23] MEDS: ACETAMINOPHEN 650 MG/20.3 ML UDC GT SCH (10:14)
[2021-05-23] MEDS: APIXABAN 2.5 MG TABLET GT SCH (10:14)
[2021-05-23] MEDS: LEVETIRACETAM SOL (5 ML) 100 MG/ML UDC GT SCH (10:14)
[2021-05-23 10:15] VITALS: BP 128/83
[2021-05-23] MEDS: AMLODIPINE BESYLATE 2.5 MG TABLET GT SCH (10:15)
[2021-05-23] MEDS: MULTIVITAMINS,THERAGRAN 1 UDTAB TABLET PO SCH (10:15)
[2021-05-23] MEDS: DOCUSATE SODIUM LIQ 100 MG/10 ML UDC GT SCH (10:15)
[2021-05-23] MEDS: AMANTADINE HCL 100 MG CAPSULE GT SCH (10:15)
[2021-05-23] MEDS: MUPIROCIN OINT 2% 22 GM TUBE NS SCH (10:16)
[2021-05-23] MEDS: PANTOPRAZOLE 40 MG/PACK PACK GT SCH (10:16)
[2021-05-23] MEDS ORDERED: POTASSIUM CHLORIDE 20 MEQ POWDER PACKET NG SCH (11:00)
[2021-05-23] MEDS ORDERED: POTASSIUM CHLORIDE 20 MEQ POWDER PACKET ONE (12:13)
--- NOTE | 2021-05-23 15:58 | NUR ---
TELE/FORK LIFT MECHANIC NOTES PATIENT IS MEDICALLY STABLE AND DR. DE LEÓN ORDERED PATIENT TO BE DISCHARGE AND TRANSFER BACK TO [facility] WHERE PATIENT CAME FROM. DISCHARGE INSTRUCTIONS GIVEN TO DEWAYNE CASANOVA COMPUTER HARDWARE ENGINEER AT [facility] OVER THE PHONE. ALL BELONGINGS ACCOUNTED FOR. PATIENT IS AWAKE AND ALERT/ORIENTED X1. ABLE TO NOD HEAD WHEN RN TALKS. IV ACCESS DISCONTINUED. PATIENT PICKED UP BY NON-EMERGENCY TRANSPORTATION GOING BACK TO [facility].
== END 2021-05-23 16:00 | DRG 720 ==
LOC: ER 10:33 → TELE1 13:07 → TELE 05-22 01:09
PROVIDERS: ADMIT Family Medicine; ATTEND Internal Medicine
DX: A41.9 Sepsis, unspecified organism (principal); N17.0 Acute kidney failure with tubular necrosis; G93.40 Encephalopathy, unspecified; J96.10 Chronic respiratory failure, unspecified whether with hypoxia or hypercapnia; K56.609 Unspecified intestinal obstruction, unspecified as to partial versus complete obstruction; E87.2 Acidosis; J15.9 Unspecified bacterial pneumonia; G93.89 Other specified disorders of brain; E87.1 Hypo-osmolality and hyponatremia; G40.909 Epilepsy, unspecified, not intractable, without status epilepticus; K27.9 Peptic ulcer, site unspecified, unspecified as acute or chronic, without hemorrhage or perforation; D75.1 Secondary polycythemia; E83.39 Other disorders of phosphorus metabolism; E86.1 Hypovolemia; E87.6 Hypokalemia; R13.10 Dysphagia, unspecified; E80.6 Other disorders of bilirubin metabolism; I12.9 Hypertensive chronic kidney disease with stage 1 through stage 4 chronic kidney disease, or unspecified chronic kidney disease; N18.9 Chronic kidney disease, unspecified; Z93.1 Gastrostomy status; Z20.822 Contact with and (suspected) exposure to COVID-19; J98.11 Atelectasis; E88.09 Other disorders of plasma-protein metabolism, not elsewhere classified; I69.351 Hemiplegia and hemiparesis following cerebral infarction affecting right dominant side
CPT/HCPCS: 36415; 70450-TC; 71045-TC; 80048-TC; 80061-TC; 80076-TC; 80202-TC; 83605-TC; 83690-TC; 83735-TC; 84100-TC; 84484-TC; 85025-TC; 87040-TC; 87081-TC; A9563; G0378; J1953; J2060; J2185; J2405; J2543; J3370; J3480; J3490; J7030; J7050; J7060; J8597; Q0177; U0003

== ENCOUNTER 2021-11-01 19:27 | Inpatient (IN) | payer MEDICAID ==
[~2021-11-01] VITALS: Ht 172.7 cm; Wt 60.4 kg
[~2021-11-01 19:27] MED LIST: ACET-2605 GT; ACET325T53 GT; AMAN100T GT; AMLO2.5T2 GT; APIX2.5T GT; BISA10SU11 RC; CRAN3875 GT; CRAN425C6 GT; DOCU-141 GT; GUAI-717 GT; HYDR10SY16 PO; IPRA4AER IH; LEVE100S GT; LEVO500T90 PO; MAGN400O6 GT; MULT-447 GT; NA P133E RC; PANT40TA49 GT; PHEN125O GT
--- NOTE | 2021-11-01 19:40 | NUR ---
PRIMO [id number]. C/O ALTERED MENTAL STATUS, TACHYCARDIA. LOW O2 SAT 87ON NRB @ 15LPM. PATIENT IS A/O TO PAIN, RR LABORED PT PLACED ON 02. PATIENT CONNECTED TO CARDIAC AND POX MONITOR.
--- NOTE | 2021-11-01 19:42 | NUR ---
RT AT PT'S BEDSIDE
--- NOTE | 2021-11-01 19:44 | NUR ---
RAC #18G S/L PATENT AND INTACT. BLOOD COLLECTED AND SENT TO LAB
--- NOTE | 2021-11-01 19:49 | NUR ---
MONEY POSITION OFFICER AT PT'S BEDSIDE
[2021-11-01] MEDS ORDERED: ONDANSETRON HCL/PF 4 MG/2 ML VIAL ONE (19:50)
[2021-11-01 19:56] LABS: ABG BASE EXCESS 0.7 mmol/L; ABG PCO2 44.3 mmHg (35.0-45.0); ABG PH 7.388 (7.350-7.450); ABG PO2 83.5 mmHg (75.0-100.0); COHb 0.7 % (0.5-1.5); MetHb 0.6 % (0.0-1.5); O2Hb 95.1 % (94.0-97.0); SITE, ABG Right Radial; VENT MODE, BG NRB 15L
[2021-11-01] MEDS ORDERED: ONDANSETRON HCL/PF 4 MG/2 ML VIAL IVP ONE (20:00)
[2021-11-01] MEDS ORDERED: IV NS 0.9% 1,000 ML BAG IV ONE ×2 (20:00→21:00)
[2021-11-01] MEDS ORDERED: ACETAMINOPHEN 650 MG/SUPP.RECT RC ONE ×2 (20:00→20:02)
[2021-11-01 20:20] LABS: BASOPHILS # (AUTO) 0.1 K/uL (0.0-0.2); BASOPHILS % (AUTO) 0.2 % (0.0-2.0); HEMATOCRIT 48 % (39-51); HEMOGLOBIN 16.3 g/dL (13.5-17.5); LYMPHOCYTES # (AUTO) 0.6 K/uL (0.8-4.8); LYMPHOCYTES % (AUTO) 2.3 % (20.0-44.0); MEAN CORPUSCULAR HGB CONC 34 g/dl (31.0-36.0); MEAN CORPUSCULAR VOLUME 93 fL (80-96); MONOCYTES % (AUTO) 3.7 % (2.0-12.0); NEUTROPHILS % (AUTO) 93.8 % (43.0-81.0); PLATELET COUNT (AUTO) 333 K/uL (150-450); RED BLOOD CELL COUNT(AUTO) 5.21 MIL/uL (4.5-6.0); WHITE BLOOD COUNT (AUTO) 27.7 K/uL (4.3-11.0)
[2021-11-01 20:31] LABS: ALANINE AMINOTRANSFERASE 28 U/L (12-78); ALBUMIN 3.4 g/dL (3.4-5.0); ALKALINE PHOSPHATASE 208 U/L (46-116); ASPARTATE AMINOTRANSFERASE 19 U/L (15-37); BILIRUBIN,DIRECT 0.5 mg/dL (0.0-0.2); BILIRUBIN,TOTAL 0.9 mg/dL (0.2-1.0); CALCIUM, SERUM 8.5 mg/dL (8.5-10.1); CARBON DIOXIDE 24 mmol/L (21-32); CHLORIDE 98 mmol/L (98-107); CREATININE 1.3 mg/dL (0.6-1.3); POTASSIUM 4.1 mmol/L (3.5-5.1); SODIUM SERUM 137 mmol/L (136-145); TOTAL PROTEIN, SERUM 7.7 g/dL (6.4-8.2); UREA NITROGEN, BLOOD 30 mg/dL (7-18)
[2021-11-01 20:33] LABS: GLUCOSE 589 mg/dL (74-106)
--- NOTE | 2021-11-01 20:36 | NUR ---
LACTIC ACID 6.8 GLUCOSE 589
--- NOTE | 2021-11-01 20:45 | NUR ---
PT TAKEN TO CT VIA ACLS PROTOCL
--- NOTE | 2021-11-01 20:56 | NUR ---
phenytoin 64.1
[2021-11-01] MEDS ORDERED: INSULIN REGULAR, HUMAN 100 UNIT/ML 10 ML VIAL IV ONE (21:00)
[2021-11-01] MEDS ORDERED: MEROPENEM 1 G in IV NS 0.9% 100 ML IV ONE (21:00)
--- NOTE | 2021-11-01 21:10 | NUR ---
COVID ANTIGEN AND PCR SWAB COLLECTED AND SENT TO LAB
--- NOTE | 2021-11-01 21:12 | NUR ---
INSERTED F/C 16FR PATENT AND INTACT. URINE COLLECTED AND SENT TO LAB
[2021-11-01 21:33] LABS: BAND % (MANUAL) 5 % (0.0-5.0); LYMPHOCYTES % (MANUAL) 3 % (16-48); MONOCYTES % (MANUAL) 7 % (0-11.0); NEUTROPHILS % (MANUAL) 85 (42-76)
[2021-11-01] MEDS ORDERED: MEROPENEM 1 G VIAL IV ONE (21:39)
[2021-11-01] MEDS ORDERED: INSULIN REGULAR, HUMAN 100 UNIT/ML 10 ML VIAL ONE (21:39)
--- NOTE | 2021-11-01 22:03 | NUR ---
FAB CLINICAL CARE LEADER AT PT'S BEDSIDE
--- NOTE | 2021-11-01 22:17 | NUR ---
BED 257
[2021-11-01] MEDS ORDERED: ACETAMINOPHEN 325 MG TABLET MC PRN (22:30)
[2021-11-01] MEDS ORDERED: ONDANSETRON HCL/PF 4 MG/2 ML VIAL IVP PRN (22:30)
[2021-11-01] MEDS ORDERED: Medication Not On Formulary EA (Ipratropium/Albuterol Sulfate (Combivent Respimat 20-100 IH PRN (22:30)
[2021-11-01] MEDS ORDERED: MAGNESIUM HYDROXIDE 30 ML UDC GT PRN (22:30)
[2021-11-01] MEDS ORDERED: DEXTROSE 50%-WATER 50 ML DISP.SYRIN IV PRN (22:30)
--- NOTE | 2021-11-01 22:31 | NUR ---
REPORT GIVEN TO PABLITO CLINICAL RESEARCH MANAGEMENT ASSOCIATE FOR JOSÉ ANTONIO
--- NOTE | 2021-11-01 22:50 | NUR ---
RECEIVED PT FROM ER LETHARGIC OPEN EYES ON PAIN, ON 15 L NON REBREATHER MASK SPO2 ON 90'S, SAFELY TRANSFER FROM [facility] TO BED HOOKED TO MONITOR WITH READING SINUS TACHY 110'S, V/S CHECKED AND RECORDED, HEAD TO ASSESSMENT DONE, TRACH STOMA NOTED WITH YELLOW THICK SECRETION NOTED WILL ASK RT FOR SUCTIONING,PT HAVE LAC #18 AND LEFT BRACHIAL IV #20 PANET AND FLUSHED,HAVE WALDEN CATHETER DRAINNG YELLOW URINE, HAVE GTUBE ON PLACED AND CLAMPED PLACEMENT WAS CHECKED, BED ON LOWEST POSITION AND LOCKED SIDE RAILS UP SEIZURE PRECAUTION ON PLACE, DROPLET ISOLATION ON PLACE TO R/O COVID, WILL CONT TO MONITOR THE PT
[2021-11-01] MEDS: IV NS 0.9% 1,000 ML IV PRN (22:54)
--- NOTE | 2021-11-01 22:55 | NUR ---
PT TRANSFERRED TO ICU VIA ACLS PROTOCOL.
[2021-11-01 23:00] VITALS: BP 123/87
[2021-11-01 23:03] LABS: BILIRUBIN,URINE NEGATIVE (NEGATIVE); COLOR,URINE YELLOW (YELLOW); LEUKOCYTE ESTERASE ,URINE NEGATIVE (NEGATIVE); NITRITE, URINE NEGATIVE (NEGATIVE); PROTEIN,URINE 30 mg/dl (NEGATIVE); UGLUCOSE >=1000 mg/dL (NEGATIVE); UROBILINOGEN,URINE 0.2 EU/dL (0.2)
[2021-11-01 23:30] VITALS: BP 144/93
[2021-11-01] MEDS ORDERED: ALBUTEROL FS 2.5 MG/0.5 ML VIAL.NEB NEB PRN (23:30)
[2021-11-01] MEDS ORDERED: IPRATROPIUM NEB FS 0.5 MG/2.5 ML AMPUL.NEB IH PRN (23:30)
[2021-11-01] MEDS ORDERED: VANCOMYCIN 1 GM in IV D5W 250ml IV ONE (23:30)
[2021-11-01 23:40] LABS: BACTERIA,URINE Many /HPF (None Seen); SQUAMOUS EPITHELIAL CELL,UR Few /HPF (None Seen)
[2021-11-01] MEDS ORDERED: VANCOMYCIN 1 GM VIAL ONE (23:42)
[2021-11-01] MEDS: BLOOD SUGAR DIAGNOSTIC 1 EACH STRIP IN SCH (23:58)
[2021-11-01] MEDS: INSULIN REGULAR, HUMAN 100 UNIT/ML 3 ML VIAL SQ PRN (23:59)
[2021-11-02] VITALS (40 sets, daily range): BP systolic 100–143; BP diastolic 70–89
[2021-11-02] MEDS ORDERED: LORAZEPAM INJ 2 MG/ML VIAL IV PRN
--- NOTE | 2021-11-02 00:05 | NUR ---
REPORTED TO OPAL SANON THAT PT HAVE EPISODE OF TONIC CLONIC SEIZURE FOR 2 MINUTES WITH ORDER FOR ATIVAN IV NOTED NA DCARRIED OUT, WILL CONT TO MONITOR THE PT, SEIZURE PRECAUTION ON PLACE ALL THE TIME
--- NOTE | 2021-11-02 02:27 | NUR ---
GOT A CALL FROM HOSPITALIST OPAL SANON BUSINESS ADMINISTRATION TEACHER TO HOLD GTUBE FEEDING OF THE PT UNTIL EDUARDO SANTIAGO NOTED AND CARRIED OUT
--- NOTE | 2021-11-02 02:35 | NUR ---
rcvd pt with open stoma and on non rebreather 15 l. pt is lethargic . nasotracheal suctioned pt with large amount of white thick secretions., rn sparkle notified.
--- NOTE | 2021-11-02 03:37 | NUR ---
nasotracheal suctioned pt with large amount of brown thin secretions . rn sparkle notified.
--- NOTE | 2021-11-02 03:43 | NUR ---
PT DESATURATED TO 84% ASK RT TO DO DEEP SUCTION TO THE PT, UPON SUCTION RT GET LARGE AMOUNT OF COFFEE GROUND COLORED SECTION, SUCTIONING TOLERATED WELL NO DISTRESS NOTED SPO2 NOW IS 95-97% WILL CONT TO MONITOR THE PT
[2021-11-02] MEDS ORDERED: MEROPENEM 1 G in IV NS 0.9% 100 ML IV SCH (05:00)
[2021-11-02 05:05] LABS: BASOPHILS % (AUTO) 0.2 % (0.0-2.0); HEMATOCRIT 44 % (39-51); HEMOGLOBIN 15.5 g/dL (13.5-17.5); LYMPHOCYTES # (AUTO) 1.2 K/uL (0.8-4.8); LYMPHOCYTES % (AUTO) 8.4 % (20.0-44.0); MEAN CORPUSCULAR HGB CONC 35 g/dl (31.0-36.0); MEAN CORPUSCULAR VOLUME 91 fL (80-96); MONOCYTES # (AUTO) 0.7 K/uL (0.1-1.30); MONOCYTES % (AUTO) 4.8 % (2.0-12.0); NEUTROPHILS # (AUTO) 12.7 K/uL (1.8-8.9); NEUTROPHILS % (AUTO) 86.6 % (43.0-81.0); PLATELET COUNT (AUTO) 208 K/uL (150-450); RED BLOOD CELL COUNT(AUTO) 4.89 MIL/uL (4.5-6.0); WHITE BLOOD COUNT (AUTO) 14.7 K/uL (4.3-11.0)
[2021-11-02 05:38] LABS: ALBUMIN 2.8 g/dL (3.4-5.0); BILIRUBIN,TOTAL 1.1 mg/dL (0.2-1.0); CALCIUM, SERUM 7.8 mg/dL (8.5-10.1); CREATININE 0.7 mg/dL (0.6-1.3); MAGNESIUM 2.1 mg/dL (1.8-2.4); PHOSPHORUS 1.8 mg/dL (2.5-4.9); POTASSIUM 3.1 mmol/L (3.5-5.1); TOTAL PROTEIN, SERUM 6.4 g/dL (6.4-8.2)
[2021-11-02] MEDS ORDERED: MEROPENEM 1 G in IV NS 0.9% 100 ML IV ONE (06:00)
[2021-11-02] MEDS: BLOOD SUGAR DIAGNOSTIC 1 EACH STRIP IN SCH ×4 (06:09→23:39)
[2021-11-02] MEDS: INSULIN REGULAR, HUMAN 100 UNIT/ML 3 ML VIAL SQ PRN ×3 (06:11→18:00)
--- NOTE | 2021-11-02 07:13 | NUR ---
PT ON BED STILL LETHARGIC, RESPOND ONLY TO PAIN STIMULI, NO SIGN OF RESPIRATORY DISTRESS ON O2 8L VIA SIMPLE MASK WITH SPO2 95-97% SINUS TACHY 120'S ON BEDSIDE MONITOR TMAX IS 102 PRN TYLENOL GIVEN, BED ON LOWEST POSITION AND LOOCKED SIDE RAILS UP X2 ENDORSED TO AM SHIFT NURSE
--- NOTE | 2021-11-02 07:30 | NUR ---
POTTERY MACHINE OPERATOR OPEN NOTES Patient received in bed non verbal and on simple mask 8 liters. Patient noted to be sinus tachy and per report had a fever of 102 in previous shift. Patient noted with jackson cath with clear yellow urine. Iv site to left ac running iv normal saline 90 cc/hour. Patient will be monitored. Call light with in reach.
[2021-11-02 07:56] LABS: ABG BASE EXCESS 1.2 mmol/L; ABG OXYGEN SATURATION 92.3 % (92.0-98.5); ABG PCO2 41.1 mmHg (35.0-45.0); ABG PH 7.416 (7.350-7.450); ABG PO2 59.1 mmHg (75.0-100.0); AaDO2 323.5 mmHg; COHb 0.3 % (0.5-1.5); MetHb 0.3 % (0.0-1.5); O2Hb 91.7 % (94.0-97.0); SITE, ABG Left Radial; VENT MODE, BG SIMPLE MASK
[2021-11-02] MEDS: ACETAMINOPHEN 325 MG TABLET MC SCH ×2 (08:22→16:34)
[2021-11-02] MEDS: MULTIVITAMINS,THERAGRAN 1 UDTAB TABLET GT SCH (08:23)
[2021-11-02] MEDS: AMLODIPINE BESYLATE 2.5 MG TABLET GT SCH ×2 (08:23→08:55)
[2021-11-02] MEDS: LEVETIRACETAM SOL (5 ML) 100 MG/ML UDC GT SCH ×2 (08:23→16:34)
[2021-11-02] MEDS: PANTOPRAZOLE 40 MG TABLET.DR PO SCH (08:24)
[2021-11-02] MEDS: DOCUSATE SODIUM 100 MG CAPSULE PO SCH (08:25)
[2021-11-02] MEDS: APIXABAN 2.5 MG TABLET GT SCH ×2 (08:25→16:35)
--- NOTE | 2021-11-02 08:30 | NUR ---
Per Md Rosales to give patient meds via g tube but to continue holding off feeding./
[2021-11-02] MEDS: POTASSIUM CL. PREMIX PERIPHER. 50 ML IV SCH ×6 (08:31→14:24)
[2021-11-02] MEDS: AMANTADINE SUSP 50 MG/5 ML UDC GT SCH (08:31)
[2021-11-02] MEDS ORDERED: PHENYTOIN GT SCH (09:00)
[2021-11-02] MEDS ORDERED: Medication Not On Formulary EA (Cran/Vitc/Mannose/Inulin/Brom (Uti-Stat Liquid) 30 MG) GT SCH (09:00)
[2021-11-02] MEDS ORDERED: ENOXAPARIN SODIUM 40 MG/0.4 ML DISP.SYRIN SQ SCH (09:00)
[2021-11-02] MEDS: IV NS 0.9% 1,000 ML IV PRN (11:00)
[2021-11-02] MEDS: VANCOMYCIN 1 GM in IV D5W 250ml IV SCH ×2 (11:12→18:16)
[2021-11-02] MEDS: MEROPENEM 1 G in IV NS 0.9% 100 ML IV SCH ×2 (13:03→20:23)
[2021-11-02] MEDS: POTASSIUM PHOSPHATE MM 7.5 MMOL in IV NS 0.9% 100 ML IV SCH ×2 (15:36→18:43)
--- NOTE | 2021-11-02 19:00 | NUR ---
SILVER PLATER CLOSING NOTES Patient is in bed non verbal and on 8 liters via simple mask. Left ac running iv fluids at 90 cc/hour. Left forearm iv access running potassium phosphate. Noted with yellow urine output of 800 cc during shift. Endorsed to next shift. Patient's temperature managed during shift with highest reading of 100.5. Patient provided cooling measures. Turned and repositioned q2h and prn.
--- NOTE | 2021-11-02 19:00 | NUR ---
RN NOTE RECEIVED PATIENT IN BED, LETHARGIC, IN NO S/SX OF ACUTE DISTRESS AT THIS TIME. SATURATION AT 100% ON 8L VIA SIMPLE MASK, ST ON THE MONITOR, HR IS 111. NOTED PREVIOUS TRACHEOSTOMY SITE. NOTED IV SITE AT LAC 18G, AND L BRACHIAL 20G, BOTH PATENT AND FLUSHING WELL, NO S/S OF INFECTION OR INFILTRATION. GTUBE IN PLACE, NPO STATUS MAINTAINED PER MD ORDERS. WALDEN CATHETER CONNECTED TO URINE BAG IN PLACE, DRAINING TO A CLEAR, YELLOW OUTPUT. SAFETY MEASURES IMPLEMENTED. PATIENT BED ALARM IS ON. HEAD OF BED ELEVATED. BED IS LOCKED, IN LOWEST POSITION AND SIDE RAILS UP. CALL LIGHT WITHIN REACH OF THE PATIENT. WILL CONTINUE TO MONITOR AND REASSESS FOR ANY CHANGES. Addendum: 11/02/21 at 2128 by MELODY ROJAS RN IV FLUID OF NS INFUSING AT 90 ML/HR
[2021-11-02] MEDS: ACETAMINOPHEN ES 500 MG TABLET GT PRN (23:47)
[2021-11-03] VITALS (22 sets, daily range): BP systolic 99–155; BP diastolic 56–99
[2021-11-03] MEDS: INSULIN REGULAR, HUMAN 100 UNIT/ML 3 ML VIAL SQ PRN ×5 (00:02→17:35)
--- NOTE | 2021-11-03 01:50 | NUR ---
RN NOTE VANCOMYCIN TROUGH DRAWN AT 0100 RESULTED: 21. TELEPHONE CALL TO PHARMACY PER PROTOCOL, SPOKE WITH KALEIGH, STATED TO HOLD THE CURRENT DOSE AND NOTIFY IN-HOUSE PHARMACY IN AM. HAUNTED HISTORY TOUR GUIDE WAS MADE AWARE.
[2021-11-03] MEDS: VANCOMYCIN 1 GM in IV D5W 250ml IV SCH (01:59)
[2021-11-03] MEDS: MEROPENEM 1 G in IV NS 0.9% 100 ML IV SCH ×3 (04:04→21:45)
[2021-11-03 04:51] LABS: BASOPHILS # (AUTO) 0.1 K/uL (0.0-0.2); BASOPHILS % (AUTO) 0.2 % (0.0-2.0); HEMATOCRIT 39 % (39-51); HEMOGLOBIN 13.5 g/dL (13.5-17.5); LYMPHOCYTES % (AUTO) 7.3 % (20.0-44.0); MEAN CORPUSCULAR HGB CONC 34 g/dl (31.0-36.0); MEAN CORPUSCULAR VOLUME 91 fL (80-96); MONOCYTES # (AUTO) 1.4 K/uL (0.1-1.30); NEUTROPHILS # (AUTO) 24.2 K/uL (1.8-8.9); NEUTROPHILS % (AUTO) 87.5 % (43.0-81.0); PLATELET COUNT (AUTO) 196 K/uL (150-450); WHITE BLOOD COUNT (AUTO) 27.6 K/uL (4.3-11.0)
[2021-11-03 05:17] LABS: CALCIUM, SERUM 8.1 mg/dL (8.5-10.1); CREATININE 0.8 mg/dL (0.6-1.3); PHOSPHORUS 2.5 mg/dL (2.5-4.9); POTASSIUM 3.7 mmol/L (3.5-5.1)
[2021-11-03] MEDS: BLOOD SUGAR DIAGNOSTIC 1 EACH STRIP IN SCH ×3 (05:24→17:39)
[2021-11-03] MEDS: IV NS 0.9% 1,000 ML IV PRN ×2 (06:11→18:43)
--- NOTE | 2021-11-03 06:56 | NUR ---
RN NOTE TELEPHONE CALL TO PHARMACY, SPOKE WITH TOBIAS, ADVISED HIM VANCOMYCIN DOSE FOR 0200 WAS HELD AND THAT [facility] WAS NOTIFIED. HE ACKNOWLEDGED AND STATED TIME OF THE NEXT DOSE WILL BE CHANGED TO 0800.
--- NOTE | 2021-11-03 07:30 | NUR ---
SUPERINTENDENT SYSTEM OPERATION OPENING NOTES Patient received in bed non verbal and on 4 liters 02 via n/c, Left ac running iv fluids at 90 cc/hour. Left forearm iv access saline lock. Noted with yellow urine. Patient's 02 titrated to 3 liters due to 02 saturation of 98% and will monitor.
[2021-11-03] MEDS: DOCUSATE SODIUM 100 MG CAPSULE PO SCH (07:48)
[2021-11-03 08:10] LABS: ABG BASE EXCESS 1.9 mmol/L; ABG OXYGEN SATURATION 92.1 % (92.0-98.5); ABG PCO2 45.2 mmHg (35.0-45.0); ABG PH 7.399 (7.350-7.450); AaDO2 115.3 mmHg; COHb 0.6 % (0.5-1.5); MetHb 0.2 % (0.0-1.5); O2Hb 91.4 % (94.0-97.0); SITE, ABG Left Radial; VENT MODE, BG 3L NC
--- NOTE | 2021-11-03 09:00 | NUR ---
Kelechi held per MD Rosales's orders.
[2021-11-03] MEDS: VANCOMYCIN 0.75 GM in IV D5W 250 ML IV SCH ×2 (09:06→16:19)
[2021-11-03] MEDS ORDERED: DIATR MEGLU/DIATRIZOATE SODIUM 120 ML BOTTLE (GASTROGRAPHIN) ONE (09:53)
[2021-11-03] MEDS: ACETAMINOPHEN 325 MG TABLET MC SCH ×2 (09:57→16:20)
[2021-11-03] MEDS: APIXABAN 2.5 MG TABLET GT SCH ×2 (09:57→16:20)
[2021-11-03] MEDS: MULTIVITAMINS,THERAGRAN 1 UDTAB TABLET GT SCH (09:57)
[2021-11-03] MEDS: LEVETIRACETAM SOL (5 ML) 100 MG/ML UDC GT SCH ×2 (09:57→16:19)
[2021-11-03] MEDS: PANTOPRAZOLE 40 MG TABLET.DR PO SCH (09:58)
[2021-11-03] MEDS: AMLODIPINE BESYLATE 2.5 MG TABLET GT SCH (09:58)
[2021-11-03] MEDS: AMANTADINE SUSP 50 MG/5 ML UDC GT SCH (09:59)
--- NOTE | 2021-11-03 10:23 | NUR ---
Radiology at bedside for Xray with contrast for small bowel obstruction. Patient given gastrograffin via g tube.
--- NOTE | 2021-11-03 14:00 | NUR ---
Patient transferred from ICU, reported by Teodoro RN. Awake and able to responds physical stimuli. Skin is warm to touch, keep clean/dry, O2sat 94% via NC at 4Ls oxygen and changed Trach dressing. Stable vital sign and documented.
--- NOTE | 2021-11-03 14:15 | NUR ---
Patient transferred to Room 114-1 and bedside report given to DEWAYNE Pina. Patient in good stable condition and no s/s of respiratory distress. HOB kept elevated. Urine output of 450 cc with the specifications writer. Turned and repositioned q2h. Patient remained afebrile.
--- NOTE | 2021-11-03 18:30 | NUR ---
RN Closing Note Patient in bed, resting, does no appears pain or discomfort. Respiratory even and unlabored via NC at 3Ls Oxygen. Skin is warm to touch, keep clean/dry, intact IV site, no s/s of adverse reaction observed from ATB. Kept lower position of the bed for safety. Call light within reach, all needs met and endorsed shift foreman.
--- NOTE | 2021-11-03 19:40 | NUR ---
RN NOTE RECEIVED PATIENT IN BED, SLEEPING, ABLE TO OPEN EYES MOMENTARILY. AROUSABLE TO LIGHT TOUCH ONLY AT THIS TIME. NON-VERBAL. BREATHING EVEN AND UNLABORED. NOTED TO BE ON 3L/MIN VIA NASAL CANULA, NO RESPIRATORY DISTRESS AT THIS TIME. HOB ELEVATED 45 DEGREES. NOTED WITH TRACHEAL OSTOMY. COVERED WITH DRY GAUZE DRESSING. NOTED WITH LEFT AC 18G, RUNNING NS AT 90 CC/HR. NO INFILTRATION NOTED. NOTED WITH WALDEN CATHETER. INTACT, DRAINING YELLOW URINE, NO HEMATURIA AT THIS TIME. BED LOW, IN LOCKED POSITION. CALL LIGHT WITHIN REACH.
--- NOTE | 2021-11-03 21:26 | NUR ---
RN NOTE PATIENT NOTED WITH DISTENDED ABDOMEN. PEG TUBE DRAINED 450 CC DARK COLORED FLUID. CONTINUES TO DRAIN GASTRIC FLUID WHEN PEG TUBE IS OPEN. RELAYED ASSESSMENT/RECENT ABDOMEN X-RAY TO MD SHIPFITTER APPRENTICE, ANA SCHAEFFER, PER MD ORDER. PLACE PATIENT ON LOW INTERMITTENT SUCTION. NOTED AND CARRIED OUT. CHARGE NURSE MADE AWARE. PATIENT HOB ELEVATED 45 DEGREES. WILL CONTINUE TO MONITOR. CALL LIGHT WITHIN REACH.
[2021-11-04] VITALS: BP 150/102
[2021-11-04] MEDS: VANCOMYCIN 0.75 GM in IV D5W 250 ML IV SCH ×3 (00:14→15:40)
[2021-11-04] MEDS: BLOOD SUGAR DIAGNOSTIC 1 EACH STRIP IN SCH ×4 (00:22→17:12)
[2021-11-04] MEDS: INSULIN REGULAR, HUMAN 100 UNIT/ML 3 ML VIAL SQ PRN ×4 (00:24→17:43)
[2021-11-04 04:00] VITALS: BP 153/102
[2021-11-04] MEDS: MEROPENEM 1 G in IV NS 0.9% 100 ML IV SCH ×4 (05:08→21:08)
[2021-11-04] MEDS: IV NS 0.9% 1,000 ML IV PRN ×2 (06:56→18:40)
[2021-11-04 07:25] LABS: BASOPHILS # (AUTO) 0.1 K/uL (0.0-0.2); BASOPHILS % (AUTO) 0.3 % (0.0-2.0); HEMATOCRIT 43 % (39-51); LYMPHOCYTES # (AUTO) 1.3 K/uL (0.8-4.8); LYMPHOCYTES % (AUTO) 4.8 % (20.0-44.0); MEAN CORPUSCULAR HGB CONC 35 g/dl (31.0-36.0); MEAN CORPUSCULAR VOLUME 91 fL (80-96); MONOCYTES # (AUTO) 0.7 K/uL (0.1-1.30); MONOCYTES % (AUTO) 2.4 % (2.0-12.0); NEUTROPHILS # (AUTO) 25.5 K/uL (1.8-8.9); NEUTROPHILS % (AUTO) 92.5 % (43.0-81.0); PLATELET COUNT (AUTO) 226 K/uL (150-450); RED BLOOD CELL COUNT(AUTO) 4.76 MIL/uL (4.5-6.0); WHITE BLOOD COUNT (AUTO) 27.6 K/uL (4.3-11.0)
--- NOTE | 2021-11-04 07:30 | NUR ---
PRINT BINDING AND FINISHING WORKER OPENING NOTES RECEIVED PATIENT ON BED, SLEEPING AND ABLE TO OPEN EYES WHEN CALLED BY NAME, NON-VERBAL. ON O2 AT 3LPM VIA NASAL CANNULA SATURATING WELL. NO SOB NOTED. NOT IN DISTRESS. HOB ELEVATED AT 45 DEGREES. WITH TRACHEAL OSTOMY COVERED WITH DRY GAUZE DRESSING. ON TELE MONITOR CURRENTLY READING SINUS TACHYCARDIA AT 115BPM. WITH IV ACCESS AT LEFT AC G18 WITH IVF NS AT 90ML/HR INFUSING WELL. IV SITE IS PATENT AND INTACT. WITH WALDEN CATHETER IN PLACE DRAINING CLEAR AND YELLOW URINE. SAFETY MEASURES IN PLACE. CALL LIGHT WITHIN REACH. BED ON LOWEST LOCKED POSITION. WILL CONTINUE TO MONITOR.
[2021-11-04 08:00] VITALS: BP 168/91
[2021-11-04] MEDS: LEVETIRACETAM SOL (5 ML) 100 MG/ML UDC GT SCH ×2 (08:05→16:09)
[2021-11-04] MEDS: MULTIVITAMINS,THERAGRAN 1 UDTAB TABLET GT SCH (08:05)
[2021-11-04] MEDS: ACETAMINOPHEN 325 MG TABLET MC SCH ×2 (08:05→16:10)
[2021-11-04] MEDS: DOCUSATE SODIUM 100 MG CAPSULE PO SCH (08:05)
[2021-11-04] MEDS: PANTOPRAZOLE 40 MG TABLET.DR PO SCH (08:05)
[2021-11-04] MEDS: APIXABAN 2.5 MG TABLET GT SCH ×2 (08:07→16:10)
[2021-11-04] MEDS: AMANTADINE SUSP 50 MG/5 ML UDC GT SCH (08:10)
[2021-11-04 08:11] LABS: CALCIUM, SERUM 8.3 mg/dL (8.5-10.1); CREATININE 0.6 mg/dL (0.6-1.3); POTASSIUM 2.9 mmol/L (3.5-5.1)
[2021-11-04] MEDS: AMLODIPINE BESYLATE 2.5 MG TABLET GT SCH (08:11)
[2021-11-04] MEDS: POTASSIUM CHLORIDE 20 MEQ POWDER PACKET GT SCH ×3 (09:41→11:49)
[2021-11-04 12:00] VITALS: BP 172/99
[2021-11-04] MEDS ORDERED: hydrALAZINE HCL 25 MG TABLET PO SCH (12:00)
[2021-11-04 16:00] VITALS: BP 151/100
--- NOTE | 2021-11-04 18:29 | NUR ---
SECURITY INSTALLATION TECHNICIAN CLOSING NOTES PATIENT ON BED, SLEEPING AND ABLE TO OPEN EYES WHEN CALLED BY NAME, NON-VERBAL. ON O2 AT 3LPM VIA NASAL CANNULA SATURATING WELL. NO SOB NOTED. NOT IN DISTRESS. HOB ELEVATED AT 45 DEGREES. WITH TRACHEAL OSTOMY COVERED WITH DRY GAUZE DRESSING. ON TELE MONITOR CURRENTLY READING SINUS TACHYCARDIA AT 113BPM. WITH IV ACCESS AT LEFT AC G18 WITH IVF NS AT 90ML/HR INFUSING WELL. IV SITE IS PATENT AND INTACT. DUE MEDS GIVEN. WITH WALDEN CATHETER IN PLACE DRAINING CLEAR AND YELLOW URINE. SAFETY MEASURES IN PLACE. CALL LIGHT WITHIN REACH. BED ON LOWEST LOCKED POSITION. WILL ENDORSE TO NEXT SHIFT FOR JOSÉ ANTONIO.
[2021-11-04 20:00] VITALS: BP 139/106
--- NOTE | 2021-11-04 20:00 | NUR ---
PT'S TEMP 100. USED COOLING MEASURES. WILL CONTINUE TO MONITOR
--- NOTE | 2021-11-04 21:00 | NUR ---
RECHECKED TEMP. 98.7 AT THIS TIME. WILL CONTINUE TO MONITOR
[2021-11-05] VITALS (20 sets, daily range): BP systolic 125–163; BP diastolic 70–104
[2021-11-05] MEDS: INSULIN REGULAR, HUMAN 100 UNIT/ML 3 ML VIAL SQ PRN ×5 (00:43→23:29)
[2021-11-05] MEDS: VANCOMYCIN 0.75 GM in IV D5W 250 ML IV SCH ×3 (00:44→16:43)
[2021-11-05] MEDS: BLOOD SUGAR DIAGNOSTIC 1 EACH STRIP IN SCH ×6 (00:44→23:28)
--- NOTE | 2021-11-05 03:30 | NUR ---
RECHECKED TEMP. 102.3 AT THIS TIME , CHARGE NURSE ASHLEY MADE AWARE. PER NURSING ASSESSMENT. TYLENOL 1,000MG G TUBE Q6HR PRN ADMINISTERED AT THIS TIME. WILL CONTINUE TO MONITOR. O2 SAT 88% ON 5L NC, RT MADE AWARE, NONREBREATHER @ 15L ADMINISTERED A THIS TIME. 02 SAT NOW AT 94%. WILL CONTINUE TO MONITOR.
[2021-11-05] MEDS: ACETAMINOPHEN ES 500 MG TABLET GT PRN (03:38)
--- NOTE | 2021-11-05 04:20 | NUR ---
DR DAVIS SCHAEFFER MADE AWARE OF PT'S BP 174/108, HR 131 AND TEMP 101.2 . HE ORDERED MOTRIN 400MG PO Q6HR PRN FOR FEVER. WILL CONTINUE WITH PLAN OF CARE
--- NOTE | 2021-11-05 04:20 | NUR ---
MS BUCHANAN ADMITTING NOTE PT TRANSPORTED BY STRETCHER TO UNIT AT THIS TIME FROM ED. RECEIVED REPORT FROM DEWAYNE COLLINS @ ED. PT IS A/O X4, ABLE TO COMMUNICATE NEEDS. NO SOB NOTED, NO C/O PAIN AT THIS TIME. NO S/S OF ANY APPARENT DISTRESS NOTED. RESPIRATIONS EVEN AND UNLABORED. ACTIVE BOWEL SOUNDS AUSCULTATED THROUGHOUT, ABDOMEN IS NON DISTENDED. SKIN IS INTACT, WARM TO TOUCH. CAPILLARY REFILL < 3 SECS, PULSES PRESENT BILATERALLY, GOOD CIRCULATION NOTED. IV ACCESS NOTED IN R HAND G # 22, INTACT, PATENT AND FLUSHING WELL. PT'S BELONGINGS ACCOUNTED FOR AND KEPT AT BEDSIDES PER PT REQUEST. ASPIRATION PRECAUTIONS IN PLACE AND MAINTAINED AT ALL TIMES, BED IN LOWEST, LOCKED POSITION, SIDE RAILS UP X2, TABLE AND CALL LIGHT WITHIN REACH. WILL CONTINUE WITH PLAN OF CARE. Addendum: 11/05/21 at 0802 by RICARDO IBRAHIM RN WRONG DOCUMENTATION
[2021-11-05] MEDS ORDERED: IBUPROFEN 400 MG TABLET PO PRN ×2 (04:30)
--- NOTE | 2021-11-05 04:34 | NUR ---
ORDER CARRIED OUT BY DR ANA SCHAEFFER. MOTRIN 400MG PO Q6HR PRN FOR FEVER ADMINISTERED AT THIS TIME. WILL CONTINUE TO MONITOR.
--- NOTE | 2021-11-05 05:30 | NUR ---
RECHECKED TEMP IS AT 100. WILL CONTINUE TO MONITOR
[2021-11-05] MEDS: MEROPENEM 1 G in IV NS 0.9% 100 ML IV SCH ×3 (05:56→20:38)
--- NOTE | 2021-11-05 07:00 | NUR ---
MS RN CLOSING NOTE PT REMAINED STABLE THROUGHOUT SHIFT. WILL ENDORSE TO ONCOMING NURSE FOR JOSÉ ANTONIO.
--- NOTE | 2021-11-05 07:35 | NUR ---
TABULATING SUPERVISOR OPENING NOTES RECEIVED PATIENT ON BED, OBTUNDED, NON-VERBAL. ON O2 [id number] VIA NON-REBREATHER MASK SATURATING 96%. NOT IN ACUTE RESPIRATORY DISTRESS. HOB ELEVATED AT 45 DEGREES. WITH TRACHEAL OSTOMY COVERED WITH DRY GAUZE DRESSING. ON TELE MONITOR CURRENTLY READING SINUS TACHYCARDIA AT 124BPM. WITH IV ACCESS AT LEFT AC #18 G, IV SITE IS PATENT AND INTACT. WITH WALDEN CATHETER IN PLACE DRAINING CLEAR AND YELLOW URINE. SAFETY MEASURES IN PLACE. CALL LIGHT WITHIN REACH. BED ON LOWEST LOCKED POSITION. WILL CONTINUE TO MONITOR.
[2021-11-05 08:34] LABS: BASOPHILS # (AUTO) 0.1 K/uL (0.0-0.2); BASOPHILS % (AUTO) 0.2 % (0.0-2.0); HEMATOCRIT 42 % (39-51); HEMOGLOBIN 14.4 g/dL (13.5-17.5); LYMPHOCYTES # (AUTO) 1.4 K/uL (0.8-4.8); LYMPHOCYTES % (AUTO) 6.3 % (20.0-44.0); MEAN CORPUSCULAR HGB CONC 35 g/dl (31.0-36.0); MEAN CORPUSCULAR VOLUME 90 fL (80-96); MONOCYTES # (AUTO) 0.8 K/uL (0.1-1.30); MONOCYTES % (AUTO) 3.5 % (2.0-12.0); NEUTROPHILS # (AUTO) 19.9 K/uL (1.8-8.9); PLATELET COUNT (AUTO) 255 K/uL (150-450); RED BLOOD CELL COUNT(AUTO) 4.63 MIL/uL (4.5-6.0); WHITE BLOOD COUNT (AUTO) 22.2 K/uL (4.3-11.0)
--- NOTE | 2021-11-05 08:54 | NUR ---
per [facility] covid negative.
[2021-11-05] MEDS: AMANTADINE SUSP 50 MG/5 ML UDC GT SCH (09:01)
[2021-11-05] MEDS: DOCUSATE SODIUM 100 MG CAPSULE PO SCH (09:01)
[2021-11-05] MEDS: LEVETIRACETAM SOL (5 ML) 100 MG/ML UDC GT SCH ×2 (09:01→17:11)
[2021-11-05] MEDS: PANTOPRAZOLE 40 MG TABLET.DR PO SCH (09:01)
[2021-11-05] MEDS: AMLODIPINE BESYLATE 2.5 MG TABLET GT SCH (09:02)
[2021-11-05] MEDS: ACETAMINOPHEN 325 MG TABLET MC SCH ×2 (09:02→17:11)
[2021-11-05] MEDS: APIXABAN 2.5 MG TABLET GT SCH ×2 (09:03→17:12)
[2021-11-05] MEDS: MULTIVITAMINS,THERAGRAN 1 UDTAB TABLET GT SCH (09:03)
[2021-11-05 09:20] LABS: CALCIUM, SERUM 8.4 mg/dL (8.5-10.1); CREATININE 0.6 mg/dL (0.6-1.3)
[2021-11-05 09:25] LABS: POTASSIUM 2.8 mmol/L (3.5-5.1)
--- NOTE | 2021-11-05 09:39 | NUR ---
RN NOTES RECEIVED CALL FROM LABS C/O COOKIE PT'S POTASSIUM IS 2.8. DR. CHRIS MADE AWARE WITH ORDER TO GIVE POTASSIUM 80 MEQ IV, ORDER CARRIED OUT.
[2021-11-05] MEDS: POTASSIUM CL. PREMIX PERIPHER. 50 ML IV SCH ×8 (10:18→19:12)
--- NOTE | 2021-11-05 11:45 | NUR ---
PATIENT BLOOD SUGAR 257.
--- NOTE | 2021-11-05 11:49 | NUR ---
PATIENT WAS UNRESPONSIVE,COLD CLAMMY DESATURATING TO 80'S,RARPID RESPONSE CALLED,EVENTUALLY INTUBATED BY DR. ROCK.
--- NOTE | 2021-11-05 13:00 | NUR ---
CLINICAL CARE LEADER NOTES RECEIVED PT FROM [facility]. S/P RAPID RESPONSE. INTUBATED AT [facility]. ETT 06/08. TOLERATING VENT SETTINGS WELL. NO FEVER. R AC INTACT AND PATENT. R HAND #22M X 2 BOTH INTACT, PATENT AND FLUSHED. SEDATED ON DIPRIVAN @10MCG/KG/MIN. WALDEN CATH IN PLACE DRAINING YELLOW URINE. G TUBE CHECKED FOR POSITIVE PLACEMENT, CLAMPED. BILATERAL SOFT WRIST RESTRAINTS IN PLACE. CHECKED FOR CIRCULATION PER PROTOCOL. WILL CONTINUE TO MONITOR.
[2021-11-05] MEDS: PROPOFOL 100 ML IV PRN (13:01)
[2021-11-05 13:19] LABS: ABG BASE EXCESS 4.2 mmol/L; ABG OXYGEN SATURATION 98.4 % (92.0-98.5); ABG PCO2 40.2 mmHg (35.0-45.0); ABG PH 7.464 (7.350-7.450); ABG PO2 126.4 mmHg (75.0-100.0); AaDO2 546.4 mmHg; COHb 0.3 % (0.5-1.5); MetHb 0.2 % (0.0-1.5); O2Hb 97.9 % (94.0-97.0); SITE, ABG Left Radial; VENT MODE, BG AC 14 500 +5 100%
[2021-11-05] MEDS ORDERED: ROCURONIUM BROMIDE 50 MG/5 ML IV ONE (14:04)
[2021-11-05] MEDS ORDERED: PROPOFOL 200 MG/20 ML VIAL IV ONE (14:04)
[2021-11-05] MEDS: IV NS 0.9% 1,000 ML IV PRN (19:00)
--- NOTE | 2021-11-05 19:21 | NUR ---
RN NOTES NO SIGNIFICANT CHANGES THROUGHOUT THE SHIFT. TOLERATING VENT SETTINGS WELL. ALL DUE MEDS GIVEN. NEEDS ATTENDED. KEPT CLEAN AND COMFORTABLE. ENDORSED TO NIGHT RN FOR JOSÉ ANTONIO.
[2021-11-06] VITALS (32 sets, daily range): BP systolic 133–171; BP diastolic 82–103
--- NOTE | 2021-11-06 03:50 | NUR ---
SENIOR BUSINESS DEVELOPMENT ANALYST PT IS INTUBATED ETT 7,5 /22CM. VENT. SETTING:AC -14, TV- 500, FI02-80%, PEEP-5. SMALL TO MODERATE AMT. OF THICK YELLOWISH SECRETION. NO S/S OF PAIN OR ANY OTHER DISTRESS. VSS, AFEBRILE, SCOPE- SR-ST. A NEW MIDLINE WAS INSERTED ON RIGHT UPPER ARM, GAUGE # 18. PT IS SEDATED WITH PROPOFOL DRIP. SOFT WRIST RESTRAINTS ON. F/C DRAINS SUFFICIENT AMT. OF CLOUDY YELLOW URINE. NO BM. VANCO IVPB @ MIDNIGHT WAS HELD D/T VANCO TROUGH LEVEL WAS 32. WILL CONTINUE CLOSE MONITORING.
[2021-11-06] MEDS: MEROPENEM 1 G in IV NS 0.9% 100 ML IV SCH ×3 (04:34→21:09)
[2021-11-06] MEDS: PROPOFOL 100 ML IV PRN ×3 (04:49→21:09)
[2021-11-06] MEDS: BLOOD SUGAR DIAGNOSTIC 1 EACH STRIP IN SCH ×4 (05:12→23:59)
[2021-11-06] MEDS: INSULIN REGULAR, HUMAN 100 UNIT/ML 3 ML VIAL SQ PRN ×2 (05:12→13:25)
[2021-11-06 05:18] LABS: CALCIUM, SERUM 7.7 mg/dL (8.5-10.1); CREATININE 0.7 mg/dL (0.6-1.3); POTASSIUM 3.6 mmol/L (3.5-5.1)
[2021-11-06 06:04] LABS: BASOPHILS % (AUTO) 0.3 % (0.0-2.0); EOSINOPHILS % (AUTO) 0.2 % (0.0-6.0); HEMATOCRIT 36 % (39-51); HEMOGLOBIN 12.4 g/dL (13.5-17.5); LYMPHOCYTES % (AUTO) 16.2 % (20.0-44.0); MEAN CORPUSCULAR HGB CONC 35 g/dl (31.0-36.0); MEAN CORPUSCULAR VOLUME 90 fL (80-96); MONOCYTES # (AUTO) 0.8 K/uL (0.1-1.30); MONOCYTES % (AUTO) 6.3 % (2.0-12.0); NEUTROPHILS # (AUTO) 9.6 K/uL (1.8-8.9); PLATELET COUNT (AUTO) 195 K/uL (150-450); RED BLOOD CELL COUNT(AUTO) 3.96 MIL/uL (4.5-6.0); WHITE BLOOD COUNT (AUTO) 12.4 K/uL (4.3-11.0)
--- NOTE | 2021-11-06 07:30 | NUR ---
OPENING NOTE: REPORT RECEIVED FROM ED RN. PT INTUBATED, SEDATED ON PROPOFOL. WALDEN CATHETER IN PLACE DRAINING WITHOUT DIFFICULTY. PT CHECKED ON HOURLY AND PRN BY NURSING STAFF.
[2021-11-06] MEDS: VANCOMYCIN 0.75 GM in IV D5W 250 ML IV SCH ×3 (08:00→18:17)
[2021-11-06 08:02] LABS: ABG BASE EXCESS 3.8 mmol/L; ABG OXYGEN SATURATION 97.3 % (92.0-98.5); ABG PCO2 41.9 mmHg (35.0-45.0); ABG PH 7.446 (7.350-7.450); ABG PO2 101.5 mmHg (75.0-100.0); AaDO2 207.9 mmHg; COHb 0.3 % (0.5-1.5); MetHb 0.3 % (0.0-1.5); O2Hb 96.7 % (94.0-97.0); SITE, ABG Right Radial
[2021-11-06] MEDS ORDERED: ACETAMINOPHEN 650 MG/20.3 ML UDC ONE (08:45)
[2021-11-06] MEDS: AMANTADINE SUSP 50 MG/5 ML UDC GT SCH (08:59)
[2021-11-06] MEDS: LEVETIRACETAM SOL (5 ML) 100 MG/ML UDC GT SCH ×2 (09:00→18:50)
[2021-11-06] MEDS ORDERED: PHARMACY TO CHANGE PO MEDS TO GT/NG XX PRN (09:00)
[2021-11-06] MEDS: DOCUSATE SODIUM 100 MG CAPSULE PO SCH (09:01)
[2021-11-06] MEDS: MULTIVITAMINS,THERAGRAN 1 UDTAB TABLET GT SCH (09:02)
[2021-11-06] MEDS: APIXABAN 2.5 MG TABLET GT SCH ×2 (09:03→18:51)
[2021-11-06] MEDS: PANTOPRAZOLE 40 MG TABLET.DR PO SCH (09:04)
[2021-11-06] MEDS: AMLODIPINE BESYLATE 2.5 MG TABLET GT SCH (09:04)
[2021-11-06] MEDS: ACETAMINOPHEN 650 MG/20.3 ML UDC GT SCH ×2 (09:04→18:50)
[2021-11-06] MEDS ORDERED: IBUPROFEN 400 MG TABLET GT PRN (10:55)
[2021-11-06] MEDS: IV NS 0.9% 1,000 ML IV PRN (11:16)
--- NOTE | 2021-11-06 19:30 | NUR ---
END OF SHIFT NOTE: PT HAD A FAIRLY UNEVENTFUL SHIFT. PROPOFOL INCREASED TO 30MCG/KG/MIN FOR PT AGITATION. RESTRAINT REMOVED FROM RIGHT WRIST D/T HX STROKE AND RIGHT ARM FLACCID. 1 BM THIS SHIFT. PT CHECKED ON HOURLY AND PRN BY NURSING STAFF.
--- NOTE | 2021-11-06 20:03 | NUR ---
RT Pt received orally intubated w/ 7.5 ETT secured at 23cm at the lip line on [facility] vent on settings AC mode, RR 14, VT 500, FIO2 30%, PEEP +5. Airway patent and secured. WEATHER STRIP INSTALLER done. Pt suctioned. Alarms set and audible. Ambubag at bedside. Will cont to monitor. Addendum: 11/06/21 at 2024 by KARENA OSHEA RT Amended: Links added.
--- NOTE | 2021-11-06 22:38 | NUR ---
ICU/STANDARDS ANALYST PT'S SBP HAS BEEN SLOWLY INCREASING 160'S TO 170'S. CALL THE SOFTWARE ARCHITECT MARIE FOR PRN. RECIEVED ORDER FOR HYDRALAZINE 10MG IV EVERY 4 HOURS PRN FOR SBP GREATER THAN 165. THIS ORDER WAS NOTED.
[2021-11-06] MEDS ORDERED: hydrALAZINE HCL IV 20 MG VIAL IV PRN (23:00)
[2021-11-07] VITALS (24 sets, daily range): BP systolic 125–163; BP diastolic 78–99
[2021-11-07] MEDS: INSULIN REGULAR, HUMAN 100 UNIT/ML 3 ML VIAL SQ PRN ×5 (00:02→23:12)
[2021-11-07] MEDS: IV NS 0.9% 1,000 ML IV PRN ×2 (02:46→14:09)
[2021-11-07] MEDS: MEROPENEM 1 G in IV NS 0.9% 100 ML IV SCH ×3 (04:38→21:31)
[2021-11-07] MEDS: PROPOFOL 100 ML IV PRN ×3 (04:38→21:32)
[2021-11-07 04:52] LABS: BASOPHILS % (AUTO) 0.6 % (0.0-2.0); EOSINOPHILS % (AUTO) 1.9 % (0.0-6.0); HEMATOCRIT 32 % (39-51); HEMOGLOBIN 12.3 g/dL (13.5-17.5); LYMPHOCYTES # (AUTO) 1.2 K/uL (0.8-4.8); LYMPHOCYTES % (AUTO) 16.4 % (20.0-44.0); MEAN CORPUSCULAR HGB CONC 38 g/dl (31.0-36.0); MEAN CORPUSCULAR VOLUME 91 fL (80-96); MONOCYTES # (AUTO) 0.5 K/uL (0.1-1.30); MONOCYTES % (AUTO) 6.3 % (2.0-12.0); NEUTROPHILS # (AUTO) 5.4 K/uL (1.8-8.9); NEUTROPHILS % (AUTO) 74.8 % (43.0-81.0); PLATELET COUNT (AUTO) 174 K/uL (150-450); RED BLOOD CELL COUNT(AUTO) 3.55 MIL/uL (4.5-6.0); WHITE BLOOD COUNT (AUTO) 7.2 K/uL (4.3-11.0)
[2021-11-07 05:42] LABS: CALCIUM, SERUM 7.2 mg/dL (8.5-10.1); CREATININE 0.4 mg/dL (0.6-1.3); POTASSIUM 3.1 mmol/L (3.5-5.1)
[2021-11-07] MEDS: BLOOD SUGAR DIAGNOSTIC 1 EACH STRIP IN SCH ×4 (05:42→23:10)
[2021-11-07] MEDS: DOCUSATE SODIUM LIQ 100 MG/10 ML UDC GT SCH (05:43)
--- NOTE | 2021-11-07 07:30 | NUR ---
OPENING NOTE: REPORT RECEIVED FROM FEMI VILLARREAL. PT IS SEDATED ON PROPOFOL 30MCG/KG/MIN. NO CHANGE IN VENT SETTINGS OVER NIGHT. PER REPORT 3 LIQUID BMS OVERNIGHT, 2 YESTERDAY AFTER BEING IMPACTED PER ABD XRAYS. PT CHECKED ON HOURLY AND PRN BY NURSING STAFF.
[2021-11-07] MEDS: MULTIVITAMINS,THERAGRAN 1 UDTAB TABLET GT SCH (08:57)
[2021-11-07] MEDS: LEVETIRACETAM SOL (5 ML) 100 MG/ML UDC GT SCH ×2 (08:58→18:10)
[2021-11-07] MEDS: ACETAMINOPHEN 650 MG/20.3 ML UDC GT SCH ×2 (08:58→18:10)
[2021-11-07] MEDS: AMLODIPINE BESYLATE 2.5 MG TABLET GT SCH (08:58)
[2021-11-07] MEDS: PANTOPRAZOLE 40 MG/PACK PACK GT SCH (08:59)
[2021-11-07] MEDS: APIXABAN 2.5 MG TABLET GT SCH (09:01)
[2021-11-07] MEDS: AMANTADINE SUSP 50 MG/5 ML UDC GT SCH (09:24)
[2021-11-07] MEDS ORDERED: POTASSIUM CHLORIDE 20 MEQ POWDER PACKET GT SCH (11:00)
[2021-11-07] MEDS: GLUCERNA 1.2 1,000 ML BOTTLE NG PRN (14:23)
[2021-11-07] MEDS: VANCOMYCIN 0.75 GM in IV D5W 250 ML IV SCH (17:23)
--- NOTE | 2021-11-07 19:30 | NUR ---
END OF SHIFT NOTE: PT HAD A FAIRLY UNEVENTFUL SHIFT. TUBE FEEDING STARTED PER MD ORDERS. NO BM THIS SHIFT. ELIQUIS STOPPED TODAY PER DR SARAVIA FOR TRACH PLACEMENT AFTER 48 HOURS. PT CHECKED ON HOURLY AND PRN BY NURSING STAFF.
[2021-11-08] VITALS (36 sets, daily range): BP systolic 108–153; BP diastolic 74–92
[2021-11-08] MEDS: IV NS 0.9% 1,000 ML IV PRN ×2 (02:02→14:29)
[2021-11-08] MEDS: VANCOMYCIN HCL 0.75 GM in IV D5W 250 ML IV SCH ×2 (03:30→16:28)
[2021-11-08] MEDS: MEROPENEM 1 G in IV NS 0.9% 100 ML IV SCH ×3 (04:35→20:54)
[2021-11-08] MEDS: PROPOFOL 100 ML IV PRN ×3 (04:36→20:54)
[2021-11-08 05:35] LABS: CALCIUM, SERUM 7.3 mg/dL (8.5-10.1); CREATININE 0.4 mg/dL (0.6-1.3)
[2021-11-08 05:39] LABS: POTASSIUM 2.7 mmol/L (3.5-5.1)
[2021-11-08 05:55] LABS: ABG BASE EXCESS 3.6 mmol/L; ABG OXYGEN SATURATION 95.2 % (92.0-98.5); ABG PCO2 41.1 mmHg (35.0-45.0); ABG PH 7.449 (7.350-7.450); ABG PO2 79.2 mmHg (75.0-100.0); AaDO2 86.4 mmHg; COHb 0.3 % (0.5-1.5); MetHb 0.2 % (0.0-1.5); O2Hb 94.7 % (94.0-97.0); SITE, ABG Right Radial
[2021-11-08] MEDS: BLOOD SUGAR DIAGNOSTIC 1 EACH STRIP IN SCH ×4 (06:07→23:33)
[2021-11-08] MEDS: DOCUSATE SODIUM LIQ 100 MG/10 ML UDC GT SCH (06:07)
--- NOTE | 2021-11-08 06:21 | NUR ---
ICU/STORE KEEPER POTASSIUM LEVEL THIS MORNING IS 2.7, CALLED DANCE HISTORIAN NIA FOR ORDERS, SAID TO GIVEN 40MEQ THEN REPEAT LEVEL AFTER.
[2021-11-08] MEDS: POTASSIUM CL. PREMIX PERIPHER. 50 ML IV SCH ×4 (06:25→09:25)
--- NOTE | 2021-11-08 07:22 | NUR ---
RN NOTES MORNING ABG RELAYED TO DR. PÉREZ;EG. NO NEW ORDERS.
--- NOTE | 2021-11-08 07:30 | NUR ---
PITCH GATHERER AM NOTES RECEIVED PT IN BED, SEDATED, NON VERBAL, AFEBRILE, ETT 7.04/08 TO MECHANICAL VENT WITH SETTING OF AC 14 TV 500 FIO2 30% PEEP 5, BREATHING EVEN AND UNLABORED, SR HR 90 ON MONITOR., WITH NS AT 90 ML/HR IN CHRIS MIDLINE, ON DIPRIVAN DRIP 35 MCG/KG. SITE CLEAR.CDI DRESSING. GT FEEDING ONGOING AT 20 ML/HR, O RESIDUAL, WALDEN CATH IN PACE DRAINING TEA COLORED URINE ADEQUATE AMOUNT.SEE NURSING FLOWSHEET FOR SKIN ISSUES.ISOLATION PRECAUTION OBSERVED. WITH SOFT WRIST RESTRAINT TO LEFT WRIST, RELEASED AND CHECKED FOR PULSE AND CIRCULATION THEN Q 2 HOURS. WILL TURN AND REPOSITION Q [address], BED LOW/LOCKED, HOB UP 30 DEG.SR UP X2, CALL LIGHT WITHIN REACH. WILL CONT TO MONITOR.
[2021-11-08] MEDS: ACETAMINOPHEN 650 MG/20.3 ML UDC GT SCH ×2 (09:20→16:30)
[2021-11-08] MEDS: PANTOPRAZOLE 40 MG/PACK PACK GT SCH (09:21)
[2021-11-08] MEDS: MULTIVITAMINS,THERAGRAN 1 UDTAB TABLET GT SCH (09:21)
[2021-11-08] MEDS: AMANTADINE SUSP 50 MG/5 ML UDC GT SCH (09:21)
[2021-11-08] MEDS: AMLODIPINE BESYLATE 2.5 MG TABLET GT SCH (09:21)
[2021-11-08] MEDS: LEVETIRACETAM SOL (5 ML) 100 MG/ML UDC GT SCH ×2 (09:25→16:30)
--- NOTE | 2021-11-08 09:30 | NUR ---
RN NOTES DUE MEDS GIVEN
--- NOTE | 2021-11-08 12:26 | NUR ---
RN NOTES PATIENT FOR TRACH PLACEMENT PER DR. ANA SCHAEFFER. NPO. CONSENT OBTAINED BY JAN WOLFE RN
[2021-11-08] MEDS: INSULIN REGULAR, HUMAN 100 UNIT/ML 3 ML VIAL SQ PRN ×2 (12:57→17:26)
[2021-11-08] MEDS ORDERED: FENTANYL PF 100MCG/2ML AMPUL IV ONE (13:30)
[2021-11-08] MEDS ORDERED: MIDAZOLAM HCL 2 MG/2ML VIAL IV ONE (13:30)
--- NOTE | 2021-11-08 14:52 | NUR ---
RN NOTES DR. KING AND DR. SCHAEFFER AT BEDSIDE FOR TRACH PLACEMENT
[2021-11-08] MEDS ORDERED: ROCURONIUM BROMIDE 50 MG/5 ML IV ONE ×2 (15:00→16:16)
--- NOTE | 2021-11-08 15:10 | NUR ---
RN NOTES TRACHEOSTOMY TUBE ALLISON #6 DCT WITH CUFFED IN PLACE BY DR. KING AND DR. ANA SCHAEFFER
--- NOTE | 2021-11-08 16:32 | NUR ---
ET TUBE REPLACED WITH TRACHEOSTOMY TUBE ALLISON #6 DCT WITH CUFFED INFLATED BY DR KING AND LAURY. BREATH SOUNDS BILATERAL RHONCHI AFTER THE PROCEDURE. Addendum: 11/08/21 at 1639 by VLAD BEYER RT Amended: Links added.
--- NOTE | 2021-11-08 18:57 | NUR ---
TEST CENTER ADMINISTRATOR CLOSING NOTES PT IN BED, SEDATED, NON VERBAL, AFEBRILE, WITH SHILEY 6 DCT [NEW] TO MECHANICAL VENT WITH SETTING OF AC 14 TV 500 FIO2 30% PEEP 5, BREATHING EVEN AND UNLABORED, SR HR 84 ON MONITOR., WITH NS AT 90 ML/HR IN CHRIS MIDLINE, ON DIPRIVAN DRIP 35 MCG/KG. SITE CLEAR.CDI DRESSING. GT FEEDING ONGOING AT 20 ML/HR, O RESIDUAL, WALDEN CATH IN PLACE DRAINING TEA COLORED URINE ADEQUATE AMOUNT. 265 TOTAL OUTPUT. ISOLATION PRECAUTION OBSERVED. WITH SOFT WRIST RESTRAINT TO LEFT WRIST, RELEASED AND CHECKED FOR PULSE AND CIRCULATION Q 2 HOURS. TURNED AND REPOSITION Q 2 HOURS. PM CARE DONE EARLIER. SAFETY MEASURES IN PLACE, BED LOW/LOCKED, HOB UP 30 DEG.SR UP X2, CALL LIGHT WITHIN REACH. WILL ENDORSE TO NEXT SHIFT FOR JOSÉ ANTONOI.
--- NOTE | 2021-11-08 19:30 | NUR ---
ICU/SENIOR JAVA PROGRAMMER ANALYST RECIEVED REPORT FROM DAY NURSE. SEE FLOWSHEET FOR ASSESSMENT, ALONG WITH SKIN ISSUES WHICH ARE ADDRESSED ON THE FLOWSHEET AND INTERVENTIONS TO THESE. PT IS CURRENTLY WITH NEW TRACH WHICH IS BLOODY. WILL CLOSELY MONITOR THIS PT. ALSO PT DOES HAVE RESTRAINT TO THE LEFT ARM NOT TO BOTH DUE TO RIGHT SIDE WEAKNESS FROM CVA 2 YRS AGO. PT IS CURRENTLY SATURATING 96-98% ON CURRENT VENT SETTINGS. PT WAS TURNED AND REPOSITIONED FOR COMFORT AND CARE.
--- NOTE | 2021-11-08 19:30 | NUR ---
ICU/INFORMATION TECHNOLOGY ASSOCIATE PT IS CURRENTLY TRACH. PT IS ALSO ON SEDATION IF ORALLY INTUBATED. THIS WILL BE TITRATED DOWN. CURRENTLY PT IS ON 35MCG DIPRIVAN THIS WAS BROUGHT DOWN TO 30MCG. WILL CONTINUE TO MONITOR THIS PT.
--- NOTE | 2021-11-08 20:31 | NUR ---
RECEIVED PT TRACHED ALLISON 6. NO RESPIRATORY DISTRESS. PT TOLERATING VENT SETTINGS. VENT ALARMS SET AND AUDIBLE. TRACH CUFF CONSULTING SALES EXECUTIVE. CONTINUE TO MONITOR. Addendum: 11/08/21 at 2032 by RIANA LOERA RT Amended: Links added.
--- NOTE | 2021-11-08 23:15 | NUR ---
ICU/SCRAP SAWYER TITRATION OF SEDATION WAS DONE. CURRENTLY PT IS ON 30MCG DIPRIVAN THIS WAS BROUGHT DOWN TO 25MCG. WILL CONTINUE TO MONITOR THIS PT.
[2021-11-09] VITALS (19 sets, daily range): BP systolic 108–167; BP diastolic 81–94
--- NOTE | 2021-11-09 00:15 | NUR ---
ICU/BLOOD BANK BUSINESS MANAGER MIDNIGHT BLOOD SUGAR CHECK WAS 108. THERE IS NO COVERAGE FOR THIS PER MD ORDERS. WILL CONTINUE TO MONITOR THIS PT PER HOSPITAL PROTOCAL.
--- NOTE | 2021-11-09 01:15 | NUR ---
ICU/POWER GRADER OPERATOR TITRATION OF SEDATION WAS DONE. CURRENTLY PT IS ON 25MCG DIPRIVAN THIS WAS BROUGHT DOWN TO 20MCG. WILL CONTINUE TO MONITOR THIS PT.
[2021-11-09] MEDS: GLUCERNA 1.2 1,000 ML BOTTLE NG PRN (01:47)
[2021-11-09] MEDS: IV NS 0.9% 1,000 ML IV PRN ×2 (01:47→12:56)
--- NOTE | 2021-11-09 02:15 | NUR ---
ICU/MEAT GRINDER TITRATION OF SEDATION WAS DONE. CURRENTLY PT IS ON 20MCG DIPRIVAN THIS WAS BROUGHT DOWN TO 15MCG. WILL CONTINUE TO MONITOR THIS PT.
--- NOTE | 2021-11-09 03:18 | NUR ---
ICU/GROCERY STORE BAGGER TITRATION OF SEDATION WAS DONE. CURRENTLY PT IS ON 15MCG DIPRIVAN THIS WAS BROUGHT DOWN TO 10MCG. WILL CONTINUE TO MONITOR THIS PT.
[2021-11-09] MEDS: VANCOMYCIN 1 GM in IV D5W 250ml IV SCH ×2 (03:41→17:10)
[2021-11-09] MEDS: MEROPENEM 1 G in IV NS 0.9% 100 ML IV SCH ×3 (04:51→21:13)
[2021-11-09 05:07] LABS: BASOPHILS % (AUTO) 0.6 % (0.0-2.0); EOSINOPHILS % (AUTO) 4.5 % (0.0-6.0); HEMATOCRIT 34 % (39-51); HEMOGLOBIN 11.7 g/dL (13.5-17.5); LYMPHOCYTES # (AUTO) 1.4 K/uL (0.8-4.8); LYMPHOCYTES % (AUTO) 19.6 % (20.0-44.0); MEAN CORPUSCULAR HGB CONC 34 g/dl (31.0-36.0); MEAN CORPUSCULAR VOLUME 91 fL (80-96); MONOCYTES # (AUTO) 0.4 K/uL (0.1-1.30); MONOCYTES % (AUTO) 6.1 % (2.0-12.0); NEUTROPHILS # (AUTO) 5.1 K/uL (1.8-8.9); NEUTROPHILS % (AUTO) 69.2 % (43.0-81.0); PLATELET COUNT (AUTO) 268 K/uL (150-450); RED BLOOD CELL COUNT(AUTO) 3.79 MIL/uL (4.5-6.0); WHITE BLOOD COUNT (AUTO) 7.4 K/uL (4.3-11.0)
[2021-11-09 05:18] LABS: CREATININE 0.4 mg/dL (0.6-1.3); MAGNESIUM 1.9 mg/dL (1.8-2.4); PHOSPHORUS 2.8 mg/dL (2.5-4.9); POTASSIUM 3.1 mmol/L (3.5-5.1)
[2021-11-09] MEDS: BLOOD SUGAR DIAGNOSTIC 1 EACH STRIP IN SCH ×3 (05:24→17:23)
[2021-11-09] MEDS: INSULIN REGULAR, HUMAN 100 UNIT/ML 3 ML VIAL SQ PRN ×3 (05:24→17:29)
--- NOTE | 2021-11-09 07:21 | NUR ---
RN OPENING NOTE RECEIVE REPORT FROM SHIP MATE NURSE. PATIENT IN STABLE CONDITION WITH NO SIGN OF DISTRESS. ON VENTILATOR. VENT SETTINGS: TRACH S.6, AC14, TV500, FIO2 30%, PEEP 5. PATIENT GET AGITATED AT TIME. CARDIAC RHYTHM SHOWS SR/ST. GLUCERNA RUNNING VIA G-TUBE AT 20ML/HR. NS RUNNING AT 90ML/HR. PATIENT IS NOW OFF SEDITION. WILL FOLLOW UP AM LABS. ALL COMFORT MEASURE IN PLACE. BONY PROMINENCE SUPPORTED. ALL SAFETY MEASURE IN PLACE. BED ON LOWEST POSITION WITH HOB ELEVATED. AND 3 SIDE RAIL UP. BED ALARM ON. WILL CONTINUE TO MONITOR.
[2021-11-09] MEDS: ACETAMINOPHEN 650 MG/20.3 ML UDC GT SCH ×2 (08:48→17:29)
[2021-11-09] MEDS: LEVETIRACETAM SOL (5 ML) 100 MG/ML UDC GT SCH ×2 (08:48→17:31)
[2021-11-09] MEDS: PANTOPRAZOLE 40 MG/PACK PACK GT SCH (08:49)
[2021-11-09] MEDS: MULTIVITAMINS,THERAGRAN 1 UDTAB TABLET GT SCH (08:49)
[2021-11-09] MEDS: AMLODIPINE BESYLATE 2.5 MG TABLET GT SCH (08:49)
[2021-11-09] MEDS: DOCUSATE SODIUM LIQ 100 MG/10 ML UDC GT SCH (08:50)
[2021-11-09] MEDS: AMANTADINE SUSP 50 MG/5 ML UDC GT SCH (08:51)
[2021-11-09] MEDS: POTASSIUM CHLORIDE 20 MEQ POWDER PACKET GT SCH ×2 (10:47→11:07)
--- NOTE | 2021-11-09 16:30 | NUR ---
transferred from 257 to 316 bed-1 pt. used same mechanical vent. vent plugged into red outlet with alarms on and functioning. tho @ bedside. Addendum: 11/09/21 at 1631 by VLAD BEYER RT Amended: Links added.
--- NOTE | 2021-11-09 16:35 | NUR ---
RN NOTE PATIENT WAS TRANSFER TO TELE ROOM 316 BED 1. REPORT WAS GIVEN TO BLAKE RN. PATIENT IN STABLE CONDITION WITH NO SIGN OF DISTRESS. AT TIME OF TRANSFER. PATIENT WAS CLEANED. LINEN WAS CHANGED.
--- NOTE | 2021-11-09 16:36 | NUR ---
RN NOTES BEDSIDE ENDORSEMENT DONE W/ IDALIA, TELEPHONE OPERATORS SUPERVISOR. PATIENT ATTACHED TO MARKETING MANAGER. NOTED W/ WALDEN CATH, TRACH/VENT, AND MIDLINE INTACT AND PATENT. PATIENT IS NON-VERBAL, OPENS EYES TO TACTILE SENSATION, NO RESPIRATORY DISTRESS NOTED. WILL CONTINUE TO MONITOR.
--- NOTE | 2021-11-09 18:52 | NUR ---
RN NOTES PATIENT RESTING IN BED, EYES CLOSED, OPENS EYES OCCASIONALLY. ON TRACH/VENT W/ SETTINGS TOLERATED, NO RESPIRATORY DISTRESS. TELE MONITORING, READING OF SR, HR IN THE 80'S-90'S, NO CARDIAC DISTRESS NOTED. MIDLINE INTACT AND PATENT, IVF INFUSING WELL. WALDEN CATH IN PLACE, DRAINING URINE OF YELLOW COLOR. GT FEEDING INCREASED TO 30CC/HR, NO RESIDUAL NOTED. DUE PM MEDS ADMINISTERED. SAFETY MEASURES MAINTAINED. WILL ENDORSE TO VOLTAGE TESTER RN FOR JOSÉ ANTONIO.
--- NOTE | 2021-11-09 20:26 | NUR ---
VEGETABLE FARMWORKER OPENING NOTES: RECEIVED PATIENT SLEEP IN BED COMFORTABLY, BED IN LOW POSITION, CALL LIGHTS WITHIN REACH, NO COMPLAIN OF PAIN AND DISCOMOFRT AT THIS TIME, NO FACIAL GRIMACING, PATIENT ON VENT SATURATING WELL, ON TELE MONITORING SR-89 NO SOB WAS OBSERVED, ON G TUBE FEEDING GLUCERNA AT 25ML PER HOUR INFUSING WELL, RRESTRAINT ON LEFT ARM, ON WALDEN CATHETER WITH 50CC URINE OUTPUT, PATIENT KEPT CLEAN AND DRY, ALL NEEDS MET, WILL CONTINUE TO MONTOR.
[2021-11-10] VITALS: BP 146/54
[2021-11-10] MEDS: BLOOD SUGAR DIAGNOSTIC 1 EACH STRIP IN SCH ×5 (00:34→23:17)
[2021-11-10 03:58] VITALS: BP 129/71
[2021-11-10 04:13] VITALS: BP 158/64
[2021-11-10] MEDS: MEROPENEM 1 G in IV NS 0.9% 100 ML IV SCH ×3 (05:56→20:12)
--- NOTE | 2021-11-10 07:30 | NUR ---
HOUSING COUNSELOR OPENING NOTES RECEIVED PATIENT IN BED, ASLEEP, A&O X 1, WITH PERIODS OF CONFUSION AND AGITATION AT TIMES. NO S/SX OF ACUTE DISTRESS NOTED. ON [facility] VENT: VENT SETTINGS: TRACH S.6, AC14, TV500, FIO2 30%, PEEP 5. CARDIAC RHYTHM SHOWS SR/ST. GLUCERNA RUNNING VIA G-TUBE AT 25ML/HR. NS RUNNING AT 90ML/HR. BONY PROMINENCE SUPPORTED. ALL SAFETY MEASURE IN PLACE. BED ON LOWEST POSITION WITH HOB ELEVATED. AND 3 SIDE RAIL UP. BED ALARM ON. WILL CONTINUE TO MONITOR ACCORDINGLY.
--- NOTE | 2021-11-10 07:41 | NUR ---
RN CLOSING NOTES: PATIENT SLEEP IN BED COMFORTABLY, AROUSABLE TO VERBAL STIMULI, NO COMPLAIN OF PAIN AND DISCOMFORT AT THIS TIME, NO FACIAL GRIMACING WAS OBSERVED, PATIENT A/OX1 CONFUSED, COMBATIVE, ON IV LINE AT CHRIS MIDLINE WITH ONGOING NSS@90ML/HR INFUSING WELL, ON GTUBE FEEDING GLUCERNA 1.2@25ML PER HOUR INFUSING WELL.ON WALDEN CATHETER- PATIENT KEPT CLEAN AND DRY, TURNING POSITION, ON MECHANICAL SOFT RESTRAINT AT LEFT ARM DUE TO COMBATIVE BEHAVIOR AND DUE TO PULLING OUT OF LINE ASSEESS FOR ANY SKIN BREAKDOWN, PATIENT KEPT CLEAN AND DRY, ALL NEEDS MET, ENDORSE TO INCOMING SHIFT.
[2021-11-10 08:00] VITALS: BP 126/90
[2021-11-10] MEDS: MULTIVITAMINS,THERAGRAN 1 UDTAB TABLET GT SCH (08:23)
[2021-11-10] MEDS: LEVETIRACETAM SOL (5 ML) 100 MG/ML UDC GT SCH ×2 (08:23→16:23)
[2021-11-10] MEDS: DOCUSATE SODIUM LIQ 100 MG/10 ML UDC GT SCH (08:23)
[2021-11-10] MEDS: AMLODIPINE BESYLATE 2.5 MG TABLET GT SCH (08:24)
[2021-11-10] MEDS: PANTOPRAZOLE 40 MG/PACK PACK GT SCH (08:24)
[2021-11-10] MEDS: AMANTADINE SUSP 50 MG/5 ML UDC GT SCH (08:27)
[2021-11-10 08:36] LABS: CALCIUM, SERUM 8.2 mg/dL (8.5-10.1); CREATININE 0.5 mg/dL (0.6-1.3); PHOSPHORUS 2.8 mg/dL (2.5-4.9)
[2021-11-10] MEDS: ACETAMINOPHEN 650 MG/20.3 ML UDC GT SCH ×2 (08:36→16:23)
[2021-11-10 09:25] LABS: BASOPHILS # (AUTO) 0.1 K/uL (0.0-0.2); BASOPHILS % (AUTO) 0.7 % (0.0-2.0); EOSINOPHILS % (AUTO) 4.4 % (0.0-6.0); HEMATOCRIT 33 % (39-51); HEMOGLOBIN 11.5 g/dL (13.5-17.5); LYMPHOCYTES # (AUTO) 1.4 K/uL (0.8-4.8); MEAN CORPUSCULAR HGB CONC 35 g/dl (31.0-36.0); MEAN CORPUSCULAR VOLUME 90 fL (80-96); MONOCYTES # (AUTO) 0.5 K/uL (0.1-1.30); NEUTROPHILS # (AUTO) 5.4 K/uL (1.8-8.9); NEUTROPHILS % (AUTO) 70.9 % (43.0-81.0); PLATELET COUNT (AUTO) 316 K/uL (150-450); RED BLOOD CELL COUNT(AUTO) 3.66 MIL/uL (4.5-6.0); WHITE BLOOD COUNT (AUTO) 7.6 K/uL (4.3-11.0)
[2021-11-10 09:28] LABS: ABG OXYGEN SATURATION 94.9 % (92.0-98.5); ABG PCO2 40.4 mmHg (35.0-45.0); ABG PH 7.474 (7.350-7.450); AaDO2 92.4 mmHg; COHb 0.4 % (0.5-1.5); MetHb 0.3 % (0.0-1.5); O2Hb 94.2 % (94.0-97.0); PEEP,BG 5 cm H2O; SITE, ABG Left Radial; VT, ABG 500 mL
--- NOTE | 2021-11-10 10:00 | NUR ---
RN NOTES FEEDING GOAL RATE IS 50 CC/HR PER FNS RECOMMENDATION. CURRENTLY ON 35 CC/HR. TOLERATING WELL, NO RESIDUAL NOTED.
[2021-11-10] MEDS: POTASSIUM CHLORIDE 20 MEQ POWDER PACKET NG SCH ×3 (10:13→12:00)
[2021-11-10] MEDS: IV NS 0.9% 1,000 ML IV PRN (10:58)
[2021-11-10] MEDS: INSULIN REGULAR, HUMAN 100 UNIT/ML 3 ML VIAL SQ PRN ×2 (11:16→17:16)
[2021-11-10 16:00] VITALS: BP 111/83
--- NOTE | 2021-11-10 18:47 | NUR ---
DIRECTOR OF MANAGED CARE CLOSING NOTES PATIENT IN BED, ASLEEP, A&O X 1, WITH PERIODS OF CONFUSION AT TIMES. NO S/SX OF ACUTE DISTRESS NOTED. ON [facility] VENT: VENT SETTINGS: TRACH S.6, SIMV, TV500, FIO2 30%, PEEP 5. CARDIAC RHYTHM SHOWS SR HR AT 98. GLUCERNA RUNNING VIA G-TUBE AT 35ML/HR. NS RUNNING AT 90ML/HR ON PATIENT'S RIGHT UPPER ARM MIDLINE. BONY PROMINENCE SUPPORTED WITH MEPILEX. ALL SAFETY MEASURE IN PLACE. BED ON LOWEST POSITION WITH HOB ELEVATED. AND 3 SIDE RAIL UP. BED ALARM ON. LEFT SOFT WRIST IN PLACE. ALL NEEDS ATTENDED AND MET. DUE MEDS GIVEN ORDERED. WILL ENDORSE TO ONCOMING SHIFT FOR JOSÉ ANTONIO.
--- NOTE | 2021-11-10 19:30 | NUR ---
COMPUTER SECURITY SPECIALIST OPENING NOTES PATIENT AWAKE IN BED. A&O X 1, WITH PERIODS OF CONFUSION. NO SOB OR S/SX OF ACUTE DISTRESS NOTED. ON [facility] VENT: VENT SETTINGS: TRACH S.6, SIMV, TV500, FIO2 30%, PEEP 5. EXTERNAL PIERCING MACHINE OPERATOR SHOWS SR HR AT 96. GLUCERNA RUNNING VIA G-TUBE AT 35ML/HR. NS RUNNING AT 90ML/HR ON PATIENT'S RIGHT UPPER ARM MIDLINE, INTACT AND PATENT. SAFETY PRECAUTIONS IN PLACE. BED IN LOWEST LOCKED POSITION, HOB ELEVATED. SIDE RAIL UP X3, BED ALARM ON, LEFT SOFT WRIST IN PLACE. WILL CONTINUE WITH PLAN OF CARE
[2021-11-11] VITALS: BP 120/91
[2021-11-11 04:00] VITALS: BP 120/91
[2021-11-11] MEDS: GLUCERNA 1.2 1,000 ML BOTTLE NG PRN (04:27)
[2021-11-11] MEDS: IV NS 0.9% 1,000 ML IV PRN (04:27)
[2021-11-11] MEDS: MEROPENEM 1 G in IV NS 0.9% 100 ML IV SCH ×2 (04:28→12:39)
[2021-11-11] MEDS: BLOOD SUGAR DIAGNOSTIC 1 EACH STRIP IN SCH ×3 (05:15→17:17)
--- NOTE | 2021-11-11 06:44 | NUR ---
RN RADIATION CLOSING NOTES PATIENT AWAKE IN BED. A&O X 1, WITH PERIODS OF CONFUSION. NO SOB OR S/SX OF ACUTE DISTRESS NOTED. ON [facility] VENT: VENT SETTINGS: TRACH S.6, SIMV, TV500, FIO2 30%, PEEP 5. EXTERNAL THEATRE PROGRAM DIRECTOR SHOWS ST AT 106 BPM. GLUCERNA RUNNING VIA G-TUBE AT 35ML/HR. NS RUNNING AT 90ML/HR ON PATIENT'S RIGHT UPPER ARM MIDLINE, INTACT AND PATENT. ALL NEEDS MET AT THIS TIME. SAFETY PRECAUTIONS IN PLACE AT ALL TIMES. BED IN LOWEST LOCKED POSITION, HOB ELEVATED. SIDE RAIL UP X3, BED ALARM ON, LEFT SOFT WRIST IN PLACE. WILL CONTINUE WITH PLAN OF CARE.
--- NOTE | 2021-11-11 07:30 | NUR ---
ACCOUNTING MACHINE SERVICER OPENING NOTES RECEIVED PATIENT IN BED, ASLEEP, A&O X 1, WITH PERIODS OF CONFUSION AT TIMES. NO S/SX OF ACUTE DISTRESS NOTED. ON [facility] VENT: VENT SETTINGS: TRACH S.6, SIMV 4, TV500, FIO2 30%, PEEP 5. CARDIAC RHYTHM SHOWS ST HR AT 108. GLUCERNA RUNNING VIA G-TUBE AT 40 ML/HR, TOLERATING WELL, NO RESIDUAL NOTED. NS RUNNING AT 90ML/HR ON PATIENT'S RIGHT UPPER ARM MIDLINE. BONY PROMINENCE SUPPORTED WITH MEPILEX. ALL SAFETY MEASURE IN PLACE. BED ON LOWEST POSITION WITH HOB ELEVATED. AND 3 SIDE RAIL UP. BED ALARM ON. LEFT SOFT WRIST IN PLACE. ALL NEEDS ATTENDED AND MET. DUE MEDS GIVEN ORDERED. WILL CONTINUE TO MONITOR ACCORDINGLY.
[2021-11-11 08:00] VITALS: BP 164/92
[2021-11-11] MEDS: AMLODIPINE BESYLATE 2.5 MG TABLET GT SCH (08:48)
[2021-11-11] MEDS: MULTIVITAMINS,THERAGRAN 1 UDTAB TABLET GT SCH (08:48)
[2021-11-11] MEDS: AMANTADINE SUSP 50 MG/5 ML UDC GT SCH (08:48)
[2021-11-11] MEDS: PANTOPRAZOLE 40 MG/PACK PACK GT SCH (08:48)
[2021-11-11] MEDS: ACETAMINOPHEN 650 MG/20.3 ML UDC GT SCH ×2 (08:48→16:01)
[2021-11-11] MEDS: LEVETIRACETAM SOL (5 ML) 100 MG/ML UDC GT SCH ×2 (08:48→16:01)
[2021-11-11] MEDS: DOCUSATE SODIUM LIQ 100 MG/10 ML UDC GT SCH (08:48)
[2021-11-11 09:24] LABS: BASOPHILS # (AUTO) 0.1 K/uL (0.0-0.2); BASOPHILS % (AUTO) 0.6 % (0.0-2.0); EOSINOPHILS % (AUTO) 3.2 % (0.0-6.0); HEMATOCRIT 38 % (39-51); LYMPHOCYTES # (AUTO) 1.7 K/uL (0.8-4.8); LYMPHOCYTES % (AUTO) 17.5 % (20.0-44.0); MEAN CORPUSCULAR HGB CONC 34 g/dl (31.0-36.0); MEAN CORPUSCULAR VOLUME 91 fL (80-96); MONOCYTES # (AUTO) 0.5 K/uL (0.1-1.30); MONOCYTES % (AUTO) 5.1 % (2.0-12.0); NEUTROPHILS # (AUTO) 7.3 K/uL (1.8-8.9); NEUTROPHILS % (AUTO) 73.6 % (43.0-81.0); PLATELET COUNT (AUTO) 424 K/uL (150-450); RED BLOOD CELL COUNT(AUTO) 4.15 MIL/uL (4.5-6.0); WHITE BLOOD COUNT (AUTO) 9.9 K/uL (4.3-11.0)
[2021-11-11] MEDS: INSULIN REGULAR, HUMAN 100 UNIT/ML 3 ML VIAL SQ PRN ×2 (11:35→17:20)
[2021-11-11 14:04] LABS: ALBUMIN 2.3 g/dL (3.4-5.0); BILIRUBIN,TOTAL 0.3 mg/dL (0.2-1.0); CREATININE 0.6 mg/dL (0.6-1.3); MAGNESIUM 2.2 mg/dL (1.8-2.4); POTASSIUM 3.2 mmol/L (3.5-5.1); TOTAL PROTEIN, SERUM 6.7 g/dL (6.4-8.2)
--- NOTE | 2021-11-11 15:38 | NUR ---
RN NOTES CALLED [facility] ([phone][facility] TO GIVE REPORT AND SPOKE TO ANTIONE BUCHANAN, PER ANTIONE SHE'S NOT AWARE THAT PATIENT IS ON VENT AND ON TRACH. SHE WILL VERIFY WITH HER LITIGATION COORDINATOR AND CALL US BACK. PATIENT IS SUPPOSED TO BE ADMITTED AT ROOM 307. INFORMED CASE MANAGEMENT (OTIS). ALSO RECEIVED A PHONE CALL FROM [employer]. THE INSURANCE ARRANGING TRANSPORTATION FOR THIS PATIENT, NO AVAILABLE RT TO TRANSPORT THE PATIENT. INFORMED DR. NUNEZ, ACKNOWLEDGED WITH NO NEW ORDERS MADE. CHARGE NURSE MADE AWARE. Addendum: 11/11/21 at 1641 by RICKEY KRUSE RN [facility] ([phone]) ROOM 307 TRANSPORTATION: [employer]: [phone]. RESERVATION # [id number].
[2021-11-11 16:00] VITALS: BP 108/76
[2021-11-11] MEDS: POTASSIUM CHLORIDE 20 MEQ POWDER PACKET GT SCH ×2 (16:02→17:03)
--- NOTE | 2021-11-11 16:59 | NUR ---
RN NOTES CALLED [facility] AND SPOKE TO KATHRINE, VERIFIED IF THERE WILL BE NO AVAILABLE RT TO TRANSPORT THE PATIENT FOR THE REST OF THE DAY. PER KATHRINE THEY EXHAUSTED ALL THE RESOURCES AND NO AVAILABLE RT TO FACILITATE TRANSFER TODAY. CHARGE NURSE MADE AWARE.
--- NOTE | 2021-11-11 18:39 | NUR ---
DIRECTOR OF CONTENT MARKETING OPENING NOTES PATIENT IN BED, ASLEEP, A&O X 1, WITH PERIODS OF CONFUSION AT TIMES. NO S/SX OF ACUTE DISTRESS NOTED. ON [facility] VENT: VENT SETTINGS: TRACH SHILEY 6, SIMV 4, TV500, FIO2 40%, PEEP 5. CARDIAC RHYTHM SHOWS ST HR AT 105. GLUCERNA 1.2 RUNNING VIA G-TUBE AT 40 ML/HR, TOLERATING WELL, NO RESIDUAL NOTED. NS RUNNING AT 90ML/HR ON PATIENT'S RIGHT UPPER ARM MIDLINE. BONY PROMINENCE SUPPORTED WITH MEPILEX. LEFT SOFT WRIST RESTRAINT IN PLACE. ALL SAFETY MEASURE IN PLACE. BED ON LOWEST POSITION WITH HOB ELEVATED. AND 3 SIDE RAIL UP. BED ALARM ON. LEFT SOFT WRIST IN PLACE. ALL NEEDS ATTENDED AND MET. DUE MEDS GIVEN ORDERED. WILL ENDORSE TO ONCOMING SHIFT FOR JOSÉ ANTONIO.
--- NOTE | 2021-11-11 19:30 | NUR ---
HOG TRADER OPENING NOTES RECEIVED PATIENT IN BED, EYES CLOSED, EASILY AROUSABLE. A&O X 1, WITH PERIODS OF CONFUSION AT TIMES. NO SOB OR S/S OF RESPIRATORY DISTRESS NOTED. ON [facility] VENT: VENT SETTINGS: TRACH SHILEY 6, SIMV 4, TV500, FIO2 40%, PEEP 5. EXTERNAL RN CLINICAL DOCUMENTATION SPECIALIST SHOWS ST HR AT 104. GLUCERNA 1.2 RUNNING VIA G-TUBE AT 40 ML/HR, TOLERATING WELL, NO RESIDUAL NOTED. NS RUNNING AT 90ML/HR ON PATIENT'S RIGHT UPPER ARM MIDLINE. BONY PROMINENCE SUPPORTED WITH MEPILEX. LEFT SOFT WRIST RESTRAINT IN PLACE. SAFETY PRECAUTIONS IN PLACE. BED ON LOWEST LOCKED POSITION, HOB ELEVATED, SIDE RAIL UP X3, BED ALARM ON, LEFT SOFT WRIST IN PLACE. WILL CONTINUE WITH PLAN OF CARE.
[2021-11-11 20:00] VITALS: BP 109/76
[2021-11-12] VITALS: BP 108/77
[2021-11-12] MEDS: BLOOD SUGAR DIAGNOSTIC 1 EACH STRIP IN SCH ×5 (00:13→23:16)
[2021-11-12] MEDS: INSULIN REGULAR, HUMAN 100 UNIT/ML 3 ML VIAL SQ PRN ×4 (00:35→17:32)
[2021-11-12] MEDS: IV NS 0.9% 1,000 ML IV PRN ×2 (02:37→11:36)
[2021-11-12 04:00] VITALS: BP 126/92
--- NOTE | 2021-11-12 06:43 | NUR ---
ROAD FREIGHT FIRER CLOSING NOTES PATIENT IN BED, EYES CLOSED, EASILY AROUSABLE. A&O X 1, WITH PERIODS OF CONFUSION AT TIMES. NO SOB OR S/S OF RESPIRATORY DISTRESS NOTED. ON [facility] VENT: VENT SETTINGS: TRACH SHILEY 6, SIMV 4, TV500, FIO2 40%, PEEP 5. EXTERNAL SKETCHER SHOWS ST HR AT 102. GLUCERNA 1.2 RUNNING VIA G-TUBE AT 50 ML/HR, TOLERATING WELL, NO RESIDUAL NOTED. NS RUNNING AT 90ML/HR ON PATIENT'S RIGHT UPPER ARM MIDLINE. BONY PROMINENCE SUPPORTED WITH MEPILEX. LEFT SOFT WRIST RESTRAINT IN PLACE. [place] CATHETER INTACT AND DRAINING WELL. ALL NEEDS MET AT THIS TIME. SAFETY PRECAUTIONS IN PLACE AT ALL TIMES. BED ON LOWEST LOCKED POSITION, HOB ELEVATED, SIDE RAIL UP X3, BED ALARM ON, LEFT SOFT WRIST IN PLACE. WILL ENDORSE TO ONCOMING NURSE FOR JOSÉ ANTONIO.
[2021-11-12 06:48] LABS: BASOPHILS % (AUTO) 0.3 % (0.0-2.0); EOSINOPHILS % (AUTO) 1.8 % (0.0-6.0); HEMATOCRIT 35 % (39-51); HEMOGLOBIN 12.1 g/dL (13.5-17.5); LYMPHOCYTES # (AUTO) 1.4 K/uL (0.8-4.8); LYMPHOCYTES % (AUTO) 10.9 % (20.0-44.0); MEAN CORPUSCULAR HGB CONC 34 g/dl (31.0-36.0); MEAN CORPUSCULAR VOLUME 90 fL (80-96); MONOCYTES # (AUTO) 0.8 K/uL (0.1-1.30); MONOCYTES % (AUTO) 6.5 % (2.0-12.0); NEUTROPHILS # (AUTO) 10.5 K/uL (1.8-8.9); NEUTROPHILS % (AUTO) 80.5 % (43.0-81.0); PLATELET COUNT (AUTO) 399 K/uL (150-450); RED BLOOD CELL COUNT(AUTO) 3.93 MIL/uL (4.5-6.0)
[2021-11-12 07:29] LABS: ALBUMIN 2.1 g/dL (3.4-5.0); BILIRUBIN,TOTAL 0.4 mg/dL (0.2-1.0); CALCIUM, SERUM 8.3 mg/dL (8.5-10.1); CREATININE 0.6 mg/dL (0.6-1.3); MAGNESIUM 2.2 mg/dL (1.8-2.4); PHOSPHORUS 2.6 mg/dL (2.5-4.9); POTASSIUM 3.5 mmol/L (3.5-5.1); TOTAL PROTEIN, SERUM 6.4 g/dL (6.4-8.2)
--- NOTE | 2021-11-12 07:30 | NUR ---
LEGAL EXECUTIVE ASSISTANT OPENING NOTES RECEIVED PATIENT IN BED, ASLEEP, A&O X 1, WITH PERIODS OF CONFUSION AT TIMES. NO S/SX OF ACUTE DISTRESS NOTED. ON [facility] VENT: VENT SETTINGS: TRACH S.6, SIMV 4, TV500, FIO2 40%, PEEP 5. CARDIAC RHYTHM SHOWS ST HR AT 108. GLUCERNA RUNNING VIA G-TUBE AT 50 ML/HR, TOLERATING WELL, NO RESIDUAL NOTED. NS RUNNING AT 90ML/HR ON PATIENT'S RIGHT UPPER ARM MIDLINE. BONY PROMINENCE SUPPORTED WITH MEPILEX. ALL SAFETY MEASURE IN PLACE. BED ON LOWEST POSITION WITH HOB ELEVATED. AND 3 SIDE RAIL UP. BED ALARM ON. LEFT SOFT WRIST IN PLACE. WILL CONTINUE TO MONITOR ACCORDINGLY.
[2021-11-12 08:00] VITALS: BP 132/85
[2021-11-12] MEDS: PANTOPRAZOLE 40 MG/PACK PACK GT SCH (08:47)
[2021-11-12] MEDS: DOCUSATE SODIUM LIQ 100 MG/10 ML UDC GT SCH (08:47)
[2021-11-12] MEDS: ACETAMINOPHEN 650 MG/20.3 ML UDC GT SCH ×2 (08:47→16:28)
[2021-11-12] MEDS: LEVETIRACETAM SOL (5 ML) 100 MG/ML UDC GT SCH ×2 (08:48→16:28)
[2021-11-12] MEDS: AMLODIPINE BESYLATE 2.5 MG TABLET GT SCH (08:48)
[2021-11-12] MEDS: MULTIVITAMINS,THERAGRAN 1 UDTAB TABLET GT SCH (08:48)
[2021-11-12] MEDS: AMANTADINE SUSP 50 MG/5 ML UDC GT SCH (08:58)
--- NOTE | 2021-11-12 09:30 | NUR ---
RN NOTES INFORMED CASE MANAGEMENT DEPT AND SPOKE TO MIMA REGARDING THE CALL THE MANAGER CATH LAB RECEIVED FROM [facility] (TRANSPORTATION) THAT THERE WILL BE AN AVAILABLE TRANSPORT TEAM FOR THE PATIENT TODAY AT 4:30 PM, PER MIMA SHE WILL COORDINATE THE TRANSFER TO [facility] AND WILL LET THE TRANSPORTATION TEAM AWARE IF PATIENT WILL BE TRANSPORTED TODAY.
[2021-11-12] MEDS: GLUCERNA 1.2 1,000 ML BOTTLE NG PRN (10:27)
[2021-11-12 12:00] VITALS: BP 97/76
[2021-11-12 16:00] VITALS: BP 112/81
--- NOTE | 2021-11-12 18:22 | NUR ---
REINFORCED IRONWORKER CLOSING NOTES PATIENT IN BED, ASLEEP, A&O X 1, WITH PERIODS OF CONFUSION AT TIMES. NO S/SX OF ACUTE DISTRESS NOTED. ON [facility] VENT: VENT SETTINGS: TRACH S.6, SIMV 4, TV500, FIO2 40%, PEEP 5. CARDIAC RHYTHM SHOWS ST HR AT 100-115. GLUCERNA RUNNING VIA G-TUBE AT 50 ML/HR, TOLERATING WELL, NO RESIDUAL NOTED. NS RUNNING AT 90ML/HR ON PATIENT'S RIGHT UPPER ARM MIDLINE. BONY PROMINENCE SUPPORTED WITH MEPILEX. ALL SAFETY MEASURE IN PLACE. BED ON LOWEST POSITION WITH HOB ELEVATED. AND 3 SIDE RAIL UP. BED ALARM ON. LEFT SOFT WRIST IN PLACE. ALL NEEDS ATTENDED AND MET. DUE MEDS GIVEN ORDERED. WILL ENDORSE TO NEXT SHIFT FOR JOSÉ ANTONIO.
--- NOTE | 2021-11-12 19:30 | NUR ---
ASSEMBLER LIQUID CENTER OPENING NOTES RECEIVED PATIENT IN BED, ASLEEP, A&O X 1, WITH PERIODS OF CONFUSION. NO SOB OR S/S OF RESPIRATORY DISTRESS NOTED. ON [facility] VENT: VENT SETTINGS: TRACH S.6, SIMV 4, TV500, FIO2 40%, PEEP 5. EXTERNAL PASTE MIXER LIQUID SHOWS ST HR AT 113 BPM. GLUCERNA RUNNING VIA G-TUBE AT 50 ML/HR, TOLERATING WELL, NO RESIDUAL NOTED. NS RUNNING AT 90ML/HR ON PATIENT'S RIGHT UPPER ARM MIDLINE, INTACT AND PATENT. BONY PROMINENCE SUPPORTED WITH MEPILEX. SAFETY PRECAUTIONS IN PLACE. BED IN LOWEST LOCKED POSITION, HOB ELEVATED, SIDE RAILS UP X3, BED ALARM ON, LEFT SOFT WRIST IN PLACE, CALL LIGHT AND TABLE WITHIN REACH. WILL CONTINUE WITH PLAN OF CARE.
[2021-11-12 20:00] VITALS: BP 104/77
[2021-11-13] VITALS: BP 116/90
[2021-11-13 04:00] VITALS: BP 123/91
[2021-11-13] MEDS: IV NS 0.9% 1,000 ML IV PRN (04:46)
[2021-11-13] MEDS: BLOOD SUGAR DIAGNOSTIC 1 EACH STRIP IN SCH ×3 (05:55→17:05)
--- NOTE | 2021-11-13 06:51 | NUR ---
DIRECTOR OF CLINICAL TRIALS CLOSING NOTES PATIENT IN BED, EYES CLOSED, EASILY AROUSABLE. A&O X 1, WITH PERIODS OF CONFUSION AT TIMES. NO SOB OR S/S OF RESPIRATORY DISTRESS NOTED. ON [facility] VENT: VENT SETTINGS: TRACH SHILEY 6, SIMV 4, TV500, FIO2 40%, PEEP 5. EXTERNAL REHAB CARE ASSISTANT SHOWS ST HR AT 105. GLUCERNA 1.2 RUNNING VIA G-TUBE AT 50 ML/HR, TOLERATING WELL, NO RESIDUAL NOTED. NS RUNNING AT 90ML/HR ON PATIENT'S RIGHT UPPER ARM MIDLINE. BONY PROMINENCE SUPPORTED WITH MEPILEX. LEFT SOFT WRIST RESTRAINT IN PLACE. [employer] CATHETER INTACT AND DRAINING WELL. ALL NEEDS MET AT THIS TIME. SAFETY PRECAUTIONS IN PLACE AT ALL TIMES. BED ON LOWEST LOCKED POSITION, HOB ELEVATED, SIDE RAIL UP X3, BED ALARM ON, LEFT SOFT WRIST IN PLACE. WILL ENDORSE TO ONCOMING NURSE FOR JOSÉ ANTONIO.
[2021-11-13 06:53] LABS: BASOPHILS % (AUTO) 0.3 % (0.0-2.0); EOSINOPHILS % (AUTO) 1.8 % (0.0-6.0); HEMATOCRIT 31 % (39-51); LYMPHOCYTES # (AUTO) 1.7 K/uL (0.8-4.8); LYMPHOCYTES % (AUTO) 13.5 % (20.0-44.0); MEAN CORPUSCULAR HGB CONC 35 g/dl (31.0-36.0); MEAN CORPUSCULAR VOLUME 90 fL (80-96); MONOCYTES % (AUTO) 8.5 % (2.0-12.0); NEUTROPHILS # (AUTO) 9.3 K/uL (1.8-8.9); NEUTROPHILS % (AUTO) 75.9 % (43.0-81.0); PLATELET COUNT (AUTO) 393 K/uL (150-450); RED BLOOD CELL COUNT(AUTO) 3.48 MIL/uL (4.5-6.0); WHITE BLOOD COUNT (AUTO) 12.2 K/uL (4.3-11.0)
--- NOTE | 2021-11-13 07:04 | NUR ---
BATTERY INSPECTOR OPENING NOTES RECEIVED PATIENT IN BED, ASLEEP, A&O X 1, WITH PERIODS OF CONFUSION. NO SOB OR S/S OF RESPIRATORY DISTRESS NOTED. ON [facility] VENT: VENT SETTINGS: TRACH S.6, SIMV 4, TV500, FIO2 40%, PEEP 5. EXTERNAL ELECTRICIAN BUS SHOWS SR. GLUCERNA RUNNING VIA G-TUBE AT 50 ML/HR, TOLERATING WELL, NO RESIDUAL NOTED. NS RUNNING AT 90ML/HR ON PATIENT'S RIGHT UPPER ARM MIDLINE, INTACT AND PATENT. SAFETY PRECAUTIONS IN PLACE. BED IN LOWEST LOCKED POSITION, HOB ELEVATED, SIDE RAILS UP X3, BED ALARM ON, LEFT SOFT WRIST IN PLACE, CALL LIGHT AND TABLE WITHIN REACH. WILL CONTINUE TO MONITOR
[2021-11-13 08:00] VITALS: BP 125/89
[2021-11-13] MEDS: PANTOPRAZOLE 40 MG/PACK PACK GT SCH (08:07)
[2021-11-13] MEDS: MULTIVITAMINS,THERAGRAN 1 UDTAB TABLET GT SCH (08:07)
[2021-11-13] MEDS: ACETAMINOPHEN 650 MG/20.3 ML UDC GT SCH ×2 (08:07→16:19)
[2021-11-13] MEDS: DOCUSATE SODIUM LIQ 100 MG/10 ML UDC GT SCH (08:07)
[2021-11-13] MEDS: AMLODIPINE BESYLATE 2.5 MG TABLET GT SCH (08:08)
[2021-11-13] MEDS: AMANTADINE SUSP 50 MG/5 ML UDC GT SCH (08:08)
[2021-11-13] MEDS: LEVETIRACETAM SOL (5 ML) 100 MG/ML UDC GT SCH ×2 (08:12→16:19)
[2021-11-13 08:15] LABS: ALBUMIN 1.9 g/dL (3.4-5.0); BILIRUBIN,TOTAL 0.3 mg/dL (0.2-1.0); CALCIUM, SERUM 8.1 mg/dL (8.5-10.1); CREATININE 0.4 mg/dL (0.6-1.3); MAGNESIUM 2.1 mg/dL (1.8-2.4); PHOSPHORUS 2.9 mg/dL (2.5-4.9); POTASSIUM 3.4 mmol/L (3.5-5.1); TOTAL PROTEIN, SERUM 6.2 g/dL (6.4-8.2)
[2021-11-13] MEDS ORDERED: POTASSIUM CHLORIDE 20 MEQ POWDER PACKET GT SCH (11:00)
[2021-11-13] MEDS: INSULIN REGULAR, HUMAN 100 UNIT/ML 3 ML VIAL SQ PRN ×2 (11:18→17:06)
[2021-11-13 12:00] VITALS: BP 118/81
--- NOTE | 2021-11-13 15:50 | NUR ---
RN NOTE GAVE REPORT TO DYLAN FOR CONTINUITY OF CARE
[2021-11-13 16:00] VITALS: BP 129/94
--- NOTE | 2021-11-13 19:15 | NUR ---
RN NOTE REPORT FROM AM NURSE RECEIVED. [facility] ETA 1929. PT NONVERBAL, ON VENT/TRACH AND ROLO SETTINGS WELL. IV ACCESS ON CHRIS MIDLINE IN PLACE, WILL DC BEFORE DISCHARGE. GT INTACT/PATENT. FC IN PLACE, DRAINING WELL WITH CLEAR YELLOW URINE. PT IN NO ACUTE DISTRESS. WILL CONT TO MONITOR.
--- NOTE | 2021-11-13 19:37 | NUR ---
RN NOTE [facility] ARRIVED. REPORT GIVEN
--- NOTE | 2021-11-13 20:03 | NUR ---
VENIPUNCTURIST NOTE PT PICKED UP BY [facility] VIA GURNEY ACCOMPANIED BY 2 PERSONNEL AND 1 RT. PT ON VENT/TRACH AND ROLO SETTINGS WELL. NO S/S OF RESPIRATORY DISTRESS NOTED. GT INTACT/PATENT, NO RESIDUALS NOTED. IV CHRIS MIDLINE REMOVED. F/C INTACT, EMPTIED 475ML OUTPUT. PT IN NO ACUTE DISTRESS. ALL PERTINENT PAPERS/DC INSTRUCTIONS SENT. [facility], RM [phone]. TRANSFERRED PT IN STABLE CONDITION. Addendum: 11/13/21 at 2014 by NEENA VICTORIA RN TELE BOX REMOVED AND GIVEN TO TELE POURED PIPE MAKER
== END 2021-11-13 20:05 | DRG 710 ==
LOC: ER 19:31 → ICU 22:43 → TELE1 11-03 14:02 → ICU 11-05 11:32 → TELE 11-09 17:22
PROVIDERS: ADMIT Nurse Practitioner Acute Care
PROC: 5A1955Z Respiratory Ventilation, Greater than 96 Consecutive Hours (ICD-10-PCS; principal; 2021-11-05)
PROC: 0BH18EZ Insertion of Endotracheal Airway into Trachea, Via Natural or Artificial Opening Endoscopic (ICD-10-PCS; 2021-11-05)
PROC: 05H533Z Insertion of Infusion Device into Right Subclavian Vein, Percutaneous Approach (ICD-10-PCS; 2021-11-06)
PROC: B546ZZA Ultrasonography of Right Subclavian Vein, Guidance (ICD-10-PCS; 2021-11-06)
PROC: 0BW Respiratory System, Revision (ICD-10-PCS; 2021-11-08)
DX: A41.9 Sepsis, unspecified organism (principal); J96.21 Acute and chronic respiratory failure with hypoxia; N17.0 Acute kidney failure with tubular necrosis; J69.0 Pneumonitis due to inhalation of food and vomit; G93.41 Metabolic encephalopathy; J15.6 Pneumonia due to other Gram-negative bacteria; K56.609 Unspecified intestinal obstruction, unspecified as to partial versus complete obstruction; E87.2 Acidosis; R53.2 Functional quadriplegia; D68.69 Other thrombophilia; E86.0 Dehydration; I10 Essential (primary) hypertension; G40.909 Epilepsy, unspecified, not intractable, without status epilepticus; R65.20 Severe sepsis without septic shock; R13.10 Dysphagia, unspecified; E66.01 Morbid (severe) obesity due to excess calories; E87.6 Hypokalemia; B96.20 Unspecified Escherichia coli [E. coli] as the cause of diseases classified elsewhere; K56.41 Fecal impaction; N39.0 Urinary tract infection, site not specified; Z16.12 Extended spectrum beta lactamase (ESBL) resistance; Z79.01 Long term (current) use of anticoagulants; Z93.1 Gastrostomy status; R73.9 Hyperglycemia, unspecified; T42.0X5A Adverse effect of hydantoin derivatives, initial encounter; Y92.129 Unspecified place in nursing home as the place of occurrence of the external cause; Z74.01 Bed confinement status; Z20.822 Contact with and (suspected) exposure to COVID-19; K56.7 Ileus, unspecified; D63.8 Anemia in other chronic diseases classified elsewhere; N40.1 Benign prostatic hyperplasia with lower urinary tract symptoms; Z87.11 Personal history of peptic ulcer disease
CPT/HCPCS: 31720; 36415; 36600; 71045-TC; 74018; 74250-TC; 80048-TC; 80053-TC; 80076-TC; 80185-TC; 80202-TC; 81001; 82803-TC; 82962-TC; 83605-TC; 83735-TC; 83880; 84100-TC; 84132-TC; 84478-TC; 84484-TC; 85025-TC; 85378-TC; 85730-TC; 87040-TC; 87081-TC; 87086-TC; 87186-TC; 94002-TC; 94003-TC; 94760-TC; 94799-TC; A4217; A4624; A6253; A6403; C9803; G0378; J1815; J1953; J2060; J2185; J2250; J2405; J2704; J3010; J3370; J3480; J3490; J7030; J7050; J7060; Q9963; U0003

== ENCOUNTER 2023-06-30 23:08 | Emergency (ER) | payer MEDICAID ==
[~2023-06-30] VITALS: Ht 167.6 cm; Wt 72.6 kg
[2023-06-30 23:15] VITALS: TEMP 98.1
[2023-07-01 02:59] VITALS: BP 120/85; O2SAT 97
== END 2023-07-01 03:57 ==
LOC: ER 23:10
DX: K94.23 Gastrostomy malfunction (principal); I10 Essential (primary) hypertension; Z79.899 Other long term (current) drug therapy
CPT/HCPCS: 74018